=== PATIENT | female | born 1995 | race Hispanic/Latino ===

== ENCOUNTER → 2022-11-29 15:28 | Outpatient (CLI) | payer OTHER, SELFPAY ==
--- NOTE | 2022-11-29 15:30 | DI.US.S_ITS ---
PROCEDURE: US OB <= 14 WEEKS FETUS INDICATIONS: DATING OUTSIDE/PRIOR DATING DATA: Last menstrual period (LMP): 10/03/2022. LMP-based estimated date of delivery (JOSR): 07/10/2023. First dating scan (date and location): Today. Estimated date of delivery (JOSR) from first dating scan: 07/10/2023. TECHNIQUE: Real-time scanning was performed of the fetus and maternal pelvic organs, with image documentation. Endovaginal scanning was also performed to better visualize the fetus and maternal ovaries. COMPARISON: None. FINDINGS: Yolk sac is present. Heart rate is 165 beats per minute. [place]-rump length is 1.7 centimeters, with an ultrasound age of 8 weeks and 1 day, concordant with the reported LMP. Left ovary is within normal limits. Right ovary not well seen. Suspected small perigestational bleed measuring 1.5 x 0.7 x 0.8 centimeters. IMPRESSION: Living intrauterine gestation at 8 weeks and 1 day of ultrasound age, concordant with the reported LMP. Small perigestational hemorrhage. Dictated by: Carl Murphy M.D. on 11/29/2022 at 17:08 Approved by: Carl Murphy M.D. on 11/29/2022 at 17:09
== END ==
PROVIDERS: Referring Provider Obstetrics & Gynecology; Visit Provider Obstetrics & Gynecology
DX: Z3A.08 8 weeks gestation of pregnancy; O46.8X1 Other antepartum hemorrhage, first trimester
CPT/HCPCS: 76801; 76817

== ENCOUNTER → 2022-12-30 14:25 | Outpatient (CLI) | payer OTHER, SELFPAY ==
[2022-12-30 15:31] LABS: Add Manual Diff / Slide Review NO; Basophils Absolute Auto 0 /uL (0-100); Basophils Percent Auto 0.2 % (0-2); Eosinophils Absolute Auto 100 /uL (0-450); Eosinophils Percent Auto 0.4 % (2-4); Hematocrit 34.4 % (36-46); Hemoglobin 11.8 g/dL (12.0-16.0); Lymphocytes Absolute Auto 3000 /uL (1100-4500); Lymphocytes Percent Auto 20.7 % (25-40); Mean Corpuscular HGB Conc 34.4 % (30-36); Mean Corpuscular Hemoglobin 28.9 PG (26-34); Mean Corpuscular Volume 83.9 fL (80-100); Monocytes Absolute Auto 600 /uL (0-900); Neutrophils Absolute Auto 10700 /uL (1500-7000); Neutrophils Percent Auto 74.7 % (50-75); Platelet Count 265 X10^3/uL (150-400); Red Cell Distribution Width 13.6 % (11.6-14.8); White Blood Cell Count 14.3 X10^3/uL (4.5-11.0)
[2022-12-30 16:23] LABS: Hepatitis B Surface Antigen NEGATIVE s/c (NEGATIVE); Rubella Antibody IgG 86.1 IU/mL (>15)
[2022-12-30 16:49] LABS: HIV 1 & 2 Ab/Ag 4th Gen Combo NEGATIVE (NEGATIVE); Hep C Virus Ab w/Reflex Quant NEGATIVE s/c (NEGATIVE)
[2022-12-30 21:11] LABS: Urine Chlamydia NOT DETECTED; Urine N gonorrhoeae NOT DETECTED
[2022-12-31 08:51] LABS: Varicella IgG Antibody 685 index (Immune >165)
[2023-01-01 06:47] LABS: RPR Screen Non Reactive (Non Reactive)
== END ==
PROVIDERS: Referring Provider Obstetrics & Gynecology; Visit Provider Obstetrics & Gynecology
DX: Z34.01 Encounter for supervision of normal first pregnancy, first trimester (principal); Z11.3 Encounter for screening for infections with a predominantly sexual mode of transmission; Z3A.12 12 weeks gestation of pregnancy
CPT/HCPCS: 36415; 80055; 86787; 86803; 86850; 86900; 86901; 87086; 87389; 87491; 87591

== ENCOUNTER → 2023-01-31 14:04 | Outpatient (CLI) | payer OTHER, SELFPAY ==
[2023-02-02 20:36] LABS: Gest Age on Col Date 17.1 weeks (.); Insulin Dep Diabetes No (.); OSBR Risk 1IN 10000 (.); Results Report (.); Test Results *Screen Negative* (.)
== END ==
PROVIDERS: Referring Provider Obstetrics & Gynecology; Visit Provider Obstetrics & Gynecology
DX: Z34.02 Encounter for supervision of normal first pregnancy, second trimester (principal); Z3A.17 17 weeks gestation of pregnancy
CPT/HCPCS: 36415; 82105

== ENCOUNTER → 2023-02-20 12:32 | Outpatient (CLI) | payer OTHER, SELFPAY ==
--- NOTE | 2023-02-20 12:33 | DI.US.S_ITS ---
PROCEDURE: US OB >= 14 WEEKS FETUS INDICATIONS: ANATOMY OUTSIDE/PRIOR DATING DATA: Last menstrual period (LMP): 10/03/2022. LMP-based estimated date of delivery (JOSR): 07/10/2023. First dating scan (date and location): 11/29/2022. Estimated date of delivery (JOSR) from first dating scan: 07/10/2023. The calculations are made using the working JOSR of 07/10/2023. TECHNIQUE: Real-time scanning was performed of the fetus, with image documentation and biometric measurements. Endovaginal scanning: None COMPARISON: None. FINDINGS: General: A single living intrauterine gestation is present. Presentation: Breech. Placenta: Placental position is posterior , without previa. Amniotic fluid index: 12.5 cm, normal range is 5-24 cm. Single deepest vertical pocket is 6.5 cm. heart rate: 141 beats per minute. Maternal cervical canal: 3.7 cm long. Normal lower limit is 2.5 cm. biometrics: Biparietal diameter: 4.4 cm, 19 week 3 day Head circumference: 17.0 cm, 19 week 4 day Abdominal circumference: 14.2 cm, 19 week 4 day Femur length: 3.3 cm, 20 week 2 day Clinically estimated gestational age: 20 week 0 day Composite gestational age from present scan: 19 week 5 day Estimated weight and percentile: 317 g, 37th percentile Anatomic survey: Neuro: Ventricles are non-dilated at less than 10 mm. Cisterna magna is normal at 3-11 mm. Cerebellum is normal in size and morphology. Nuchal skin fold: Normal at less than 6 mm between 14-21 weeks gestational age. Face: Nose and lips, facial profile not visualized. Spine: No evidence for spina bifida. Heart: 4-chambered heart and outflow tracks not visualized. Diaphragm: Diaphragm is intact. Stomach: Left-sided stomach is present. Kidneys: No hydronephrosis. Normal is less than 5 mm in 2nd trimester, less than 7 mm in 3rd trimester. Cord: 3-vessel cord has orthotopic insertion. Bladder: Normal in size. Extremities: All 4 extremities identified. IMPRESSION: Single live intrauterine consistent with a 19 week 5 day gestation by current ultrasound. Four-chamber view, cardiac outflow cyst, facial profile not well visualized due to positioning. Approved by: German Noel M.D. on 02/20/2023 at 18:49
== END ==
PROVIDERS: Referring Provider Obstetrics & Gynecology; Visit Provider Obstetrics & Gynecology
DX: Z34.02 Encounter for supervision of normal first pregnancy, second trimester; Z3A.19 19 weeks gestation of pregnancy
CPT/HCPCS: 76811

== ENCOUNTER → 2023-04-07 14:25 | Outpatient (CLI) | payer OTHER, SELFPAY ==
[2023-04-07 16:07] LABS: Hematocrit 30.6 % (36-46); Hemoglobin 10.3 g/dL (12.0-16.0)
[2023-04-07 16:59] LABS: GTT (PREG) 1 Hour PP 50gm Dose 131 mg/dL (76-139)
== END ==
PROVIDERS: Referring Provider Obstetrics & Gynecology; Visit Provider Obstetrics & Gynecology
DX: Z34.02 Encounter for supervision of normal first pregnancy, second trimester (principal); Z3A.26 26 weeks gestation of pregnancy
CPT/HCPCS: 36415; 82950; 85014; 85018

== ENCOUNTER → 2023-04-24 14:52 | Outpatient (CLI) | payer OTHER, SELFPAY ==
--- NOTE | 2023-04-24 14:53 | DI.US.S_ITS ---
PROCEDURE: US OB LIMITED INDICATIONS: FOLLOW UP ANATOMY AND SIZE GREATER THAN DATES OUTSIDE/PRIOR DATING DATA: Last menstrual period (LMP): 10/03/2022. LMP-based estimated date of delivery (JOSR): 07/10/2023. First dating scan (date and location): 11/29/2022. Estimated date of delivery (JOSR) from first dating scan: 07/10/2023. The calculations are made using the ultrasound JOSR of 07/10/2023. TECHNIQUE: Real-time scanning was performed of the fetus, with image documentation and biometric measurements. COMPARISON: [facility], OB >= 14 WEEKS FETUS, 02/20/2023, 13:09. [facility], OB <= 14 WEEKS FETUS, 11/29/2022, 15:46. FINDINGS: General: A single living intrauterine gestation is present. Presentation: Vertex. Placenta: Placental position is posterior , without previa. Amniotic fluid index: 21.1 cm, normal range is 5-24 cm. Single deepest vertical pocket is 6.9 cm. heart rate: 126 beats per minute. Maternal cervical canal: 4.4 cm long. Normal lower limit is 2.5 cm. biometrics: Biparietal diameter: 7.6 cm equals 30 weeks 3 days Head circumference: 28.7 cm equals 31 weeks 4 days Abdominal circumference: 25.8 cm equals 30 weeks 0 days Femur length: 5.6 cm equals 29 weeks 3 days Clinically estimated gestational age: 29 weeks 0 days Composite gestational age from present scan: 30 weeks 0 days Estimated weight and percentile: 1487 g, 73rd percentile Other: The heart and facial profile now appear within normal limits. This study is limited by body habitus. IMPRESSION: Technically limited study demonstrating a normal heart and facial profile. Normal interval growth when compared to the prior ultrasound examination. We strive to produce accurate, complete, and clear reports of imaging services. To assist us in improving patient care, this report was composed using standard report templates and voice recognition software. Therefore, it may contain abnormal punctuation, insertions and/or omissions. Occasional wrong-word or sound-alike substitutions may occur. Though we review the report and make efforts to correct it, we do recommend that the report be read carefully in proper context to recognize any text inaccuracies. Dictated by: Juventino Washington M.D. on 04/24/2023 at 15:37 Approved by: Juventino Washington M.D. on 04/24/2023 at 15:40
== END ==
PROVIDERS: Referring Provider Obstetrics & Gynecology; Visit Provider Obstetrics & Gynecology
DX: O26.843 Uterine size-date discrepancy, third trimester (principal); Z3A.30 30 weeks gestation of pregnancy
CPT/HCPCS: 76815

== ENCOUNTER → 2023-06-14 10:42 | Outpatient (CLI) | payer OTHER, SELFPAY ==
[2023-06-15 14:51] LABS: Strep Grp B PCR POS for Grp B Strep
== END ==
PROVIDERS: Visit Provider Obstetrics & Gynecology
DX: Z3A.36 36 weeks gestation of pregnancy (principal); Z34.03 Encounter for supervision of normal first pregnancy, third trimester
CPT/HCPCS: 87653

== ENCOUNTER → 2023-06-15 10:16 | Outpatient (CLI) | payer OTHER, SELFPAY ==
--- NOTE | 2023-06-15 | DI.US.S_ITS ---
PROCEDURE: US OB LIMITED INDICATIONS: SIZE GREATER THAN DATES OUTSIDE/PRIOR DATING DATA: Last menstrual period (LMP): 10/03/2022. LMP-based estimated date of delivery (JOSR): 07/10/2023. First dating scan (date and location): 11/29/2022. Estimated date of delivery (JOSR) from first dating scan: 07/10/2023. The calculations are made using the working JOSR of 07/10/2023. TECHNIQUE: Real-time scanning was performed of the fetus, with image documentation and biometric measurements. Endovaginal scanning: None COMPARISON: [facility], OB LIMITED, 04/24/2023, 15:08. FINDINGS: General: A single living intrauterine gestation is present. Presentation: Vertex. Placenta: Placental position is posterior , without previa. Amniotic fluid index: 17.7 cm, normal range is 5-24 cm. Single deepest vertical pocket is 8.4 cm. heart rate: 140 beats per minute. Maternal cervical canal: 4.3 cm long. Normal lower limit is 2.5 cm. biometrics: Biparietal diameter: 8.8 cm, 35 week 3 day Head circumference: 32.1 cm, 36 week 2 day Abdominal circumference: 36.9 cm, 40 week 6 day Femur length: 6.9 cm, 35 week 1 day Clinically estimated gestational age: 36 week 3 day Composite gestational age from present scan: 37 week 0 day Estimated weight and percentile: 3496 g, 94 percentile Other: Umbilical artery SD ratio: 1.79, 2.27, 2.05 IMPRESSION: Single live intrauterine consistent with 37 week 0 day gestation by present ultrasound and 36 week 3 day gestation by dates Approved by: German Noel M.D. on 06/15/2023 at 13:34
== END ==
PROVIDERS: Referring Provider Obstetrics & Gynecology; Visit Provider Obstetrics & Gynecology
DX: O26.849 Uterine size-date discrepancy, unspecified trimester (principal); Z3A.36 36 weeks gestation of pregnancy
CPT/HCPCS: 76815

== ENCOUNTER → 2023-07-05 09:39 | Outpatient (CLI) | payer OTHER, SELFPAY | PROVIDERS: Visit Provider Obstetrics & Gynecology | DX: R82.998 Other abnormal findings in urine (principal) | CPT/HCPCS: 87086 ==

== ENCOUNTER 2023-07-12 08:32 | Outpatient (CLI) | payer OTHER, SELFPAY ==
--- NOTE | 2023-07-12 08:35 | DI.US.S_ITS ---
PROCEDURE: US OB LIMITED INDICATIONS: post dates, large baby OUTSIDE/PRIOR DATING DATA: Last menstrual period (LMP): 10/03/2022. LMP-based estimated date of delivery (JOSR): 07/10/2023. First dating scan (date and location): 11/29/2022. Estimated date of delivery (JOSR) from first dating scan: 07/10/2023. The calculations are made using the clinical JOSR of 07/10/2023. TECHNIQUE: Real-time scanning was performed of the fetus, with image documentation and biometric measurements. Endovaginal scanning: Not performed COMPARISON: [facility], OB LIMITED, 06/15/2023, 10:31. FINDINGS: General: A single living intrauterine gestation is present. Presentation: Vertex. Placenta: Placental position is posterior , without previa. Amniotic fluid index: 13.7 cm, normal range is 5-24 cm. Single deepest vertical pocket is 4.3 cm. heart rate: 149 beats per minute. biometrics: Biparietal diameter: 9.4 centimeters, 38 weeks 2 days Head circumference: 35.2 centimeters, 41 weeks 0 days Abdominal circumference: 37.2 centimeters, 41 weeks 1 day Femur length: 7.7 centimeters, 39 weeks 3 days Clinically estimated gestational age: 40 weeks 2 days Composite gestational age from present scan: 40 weeks 0 days Estimated weight and percentile: 4079 grams, 81st percentile Biophysical profile: Tone: 2 Movement: 2 Respiration: 2 Largest Pocket: 2 Umbilical artery S/D: 1.79-2.27 IMPRESSION: 1. Single live intrauterine at 40 weeks and 2 days. 2. Normal biophysical profile. Umbilical artery Dopplers range from 1.79-2.27. We strive to produce accurate, complete, and clear reports of imaging services. To assist us in improving patient care, this report was composed using standard report templates and voice recognition software. Therefore, it may contain abnormal punctuation, insertions and/or omissions. Occasional wrong-word or sound-alike substitutions may occur. Though we review the report and make efforts to correct it, we do recommend that the report be read carefully in proper context to recognize any text inaccuracies. Dictated by: Niels Bonilla M.D. on 07/12/2023 at 9:53 Approved by: Niels Bonilla M.D. on 07/12/2023 at 9:55
== END 2023-07-12 10:22 | disposition home or self-care (01) ==
LOC: LABOR 09:06 → OB 07-17 08:22
PROVIDERS: Referring Provider Obstetrics & Gynecology; Visit Provider Obstetrics & Gynecology
DX: O48.0 Post-term pregnancy (principal); O36.8130 Decreased fetal movements, third trimester, not applicable or unspecified; Z3A.40 40 weeks gestation of pregnancy; R82.998 Other abnormal findings in urine
CPT/HCPCS: 59025; 76815; 76819; 87086; G0378; G0379

== ENCOUNTER → 2023-07-12 08:40 | Outpatient (CLI) | payer OTHER, SELFPAY | PROVIDERS: Visit Provider Obstetrics & Gynecology | DX: R82.998 Other abnormal findings in urine (principal) | CPT/HCPCS: 87086 ==

== ENCOUNTER 2023-07-13 05:34 | Inpatient (IN) | payer OTHER, SELFPAY ==
--- NOTE | 2023-07-12 21:33 | P.HPOB_ITS ---
OB HPI Date/Time Date of admission: 07/13/23 Date Patient Seen: 07/13/23 Time Patient Seen: 07:15 History of Present Condition Chief complaint: IUP, 40+ 3 wks, macrosomia, unengaged vertex : 1 Para: 0 Estimated Date of Delivery: 07/10/23 Estimated Gestational Age (weeks): 40+3 Narrative: Kia Polo is a 27 year old primigravida admitted now for primary section due to macrosomia with an estimated weight of greater than 9 lb and an unengaged vertex at term. Patient is 4 ft 11 in height and clinical exam/pelvimetry consistent with relative inlet obstruction due to cephalopelvic disproportion. After discussing all options including ripening/induction versus primary section, patient and her have decided to move forward with primary due to potential risks of shoulder dystocia and prolonged unsuccessful induction given that the vertex is unengaged. The patient's course has been uneventful with solid early dating and appropriate milestones throughout. GBS carrier status is positive. Indications Operative indications ( section): elective (macrosomia, unengaged vertex at term) History of Present care: good care Dating criteria: LMP confirmed by 1st trimester US Ultrasounds: normal 1st trimester US, normal mid trimester US and abnormal US findings (Macrosomia; EFW 4075 gms.) Obstetrical complications: other (Macrosomia) Medical complications: none Preadmission Labs Blood type: A (+) positive -: Antibody screen: negative, GBS status: positive, HBsAG: negative, HIV: negative and RPR/VDLR: negative -: Chlamydia screen: not detected and Gonorrhea screen: not detected -: Rubella: immune and Varicella: immune HCT: 30.6 HCAB: negative PAP: Normal Quad screen: Normal (NL AFP testing) Cell-free DNA: Low risk female 1 hr GTT: 131 Prior (ies) History: Primigravida Evaluation Evaluation Baseline heart rate: 140 Variability: Moderate (11-25) monitor accelerations: Present Monitor Decelerations: Absent Category of Tracing: Reactive Status: Category l Dilation: Closed Effacement: 40-50% station: -4 Position of cervix: mid Consistency: soft Cristobal score: 4 [facility] Medical History (Updated 07/12/23 @ 08:35 by Ray Jamil MD) Hip pain SI (sacroiliac) joint dysfunction TBI (traumatic brain injury) Surgical History (Updated 01/30/23 @ 18:17 by Terrie Rosales) [place] teeth extracted (~2013) S/P ASA/PRK (advanced surface ablation photorefractive keratectomy) (~2015) Family History (Updated 01/30/23 @ 18:18 by Terrie Rosales) Father Hypertension Hyperlipidemia Mental health problem Grandfather Glaucoma Lung cancer Grandfather Hypertension Colon cancer Hyperlipidemia Grandmother Hypertension Cataracts, bilateral Brother Asthma Social History marital status: number of children: 0 household members: spouse lives independently: Yes caregiver/support person: No housing: apartment pets and animals: Yes (1 cat, 1 dog; aware of toxo precautions) education level: college (rolando's degree) 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; 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[employer]) current occupational exposures/hazards: Yes (aware of precautions w/ cleaning chemicals) travel history: over 6 months ago seatbelt use: always helmet use: Yes water heater temp set < 120 deg: Yes working smoke detector in home: Yes fire extinguisher in home: Yes carbon monox detector in home: Yes firearms in home: Yes firearms unloaded and locked: Yes do you feel safe at home: Yes Smoking Status: Never smoker second hand exposure: No alcohol intake: former (2-3/week when not ) substance use type: does not use during the past year weight has: other (lost ~40lb in boot camp, back to baseline weight now.) well-balanced diet: daily or most days daily servings fruits/ve-4 caffeine: Yes (aware of 200mg limit) Type(s) of exercise: walking, weight lifting and other (rowing, hiking) frequency: 5-6 times per week Meds Home Medications and Allergies Home Medications Medication Instructions Recorded Confirmed Type prenat.vits,aspen,itp-etbv-skibv 1 tab PO DAILY 11/18/22 07/12/23 History breast pump #1 ea 02/28/23 07/12/23 Rx omeprazole 40 mg capsule,delayed 40 mg PO DAILY #30 caps 04/06/23 07/12/23 Rx release Allergies Allergy/AdvReac Type Severity Reaction Status Date / Time lactose AdvReac Mild Abdominal Verified 07/12/23 14:07 Pain Review of Systems Review of Systems Narrative: Problem-specific ROS positives included in HPI OB Exam Vital signs Blood Pressure: 132/90 Pulse Rate: 85 Temperature: 98.4 F HENMT Head: normal to inspection, normocephalic and atraumatic Eyes General: appearance normal, both eyes and all related structures Resp Effort & Inspection: normal respiratory effort and able to speak in complete sentences Auscultation: clear to auscultation bilaterally Cardio Rate: regular rate Rhythm: regular rhythm Heart Sounds: S1 normal, S2 normal and no murmurs Extremities Lower extremity: Yes normal to inspection GI Inspection: normal to inspection Palpation: Yes soft and Yes no hepatosplenomegaly Uterus Location (Fundal Height): 40 Estimated Weight (lbs): 9 Objective Labs 07/13/23 06:00 Assessment and Plan Assessment and Plan Assessment and Plan narrative: ASSESSMENT 1. Intrauterine , 40+3 wks EGA 2. macrosomia 3. Unengaged vertex at term 4. GBS positive status PLAN 1. Admit for primary section 2. Patient counseled regarding alternatives, risks, benefits, and potential complications associated with delivery. With full understanding of the above, a written consent was executed, signed, and witnessed this date. 3. See admission orders
[2023-07-13 05:51] VITALS: BP 132/90
[2023-07-13] MEDS: LACTATED RINGERS 1,000 ML 999 ML IV (06:08)
[2023-07-13 06:19] LABS: Add Manual Diff / Slide Review NO; Basophils Absolute Auto 100 /uL (0-100); Basophils Percent Auto 0.6 % (0-2); Eosinophils Absolute Auto 100 /uL (0-450); Eosinophils Percent Auto 0.6 % (2-4); Hematocrit 34.7 % (36-46); Hemoglobin 11.5 g/dL (12.0-16.0); Lymphocytes Absolute Auto 3100 /uL (1100-4500); Lymphocytes Percent Auto 25.2 % (25-40); Mean Corpuscular HGB Conc 33.1 % (30-36); Mean Corpuscular Hemoglobin 27.4 PG (26-34); Monocytes Absolute Auto 700 /uL (0-900); Monocytes Percent Auto 5.4 % (3-14); Neutrophils Absolute Auto 8300 /uL (1500-7000); Neutrophils Percent Auto 68.2 % (50-75); Platelet Count 193 X10^3/uL (150-400); Red Blood Cell Count 4.18 X10^6/uL (4.0-5.2); Red Cell Distribution Width 16.7 % (11.6-14.8); White Blood Cell Count 12.3 X10^3/uL (4.5-11.0)
[2023-07-13 07:23] VITALS: BP 132/90; PULSE 85; TEMP 36.9
--- NOTE | 2023-07-13 07:23 | PM.PREOP ---
Pre-operative Note COVID-19 COVID-19 status: Not tested Interval Note History & Physical reviewed/Exam performed by Physician: Yes Changes to H&P: No
[2023-07-13] MEDS: CITRIC ACID/SODIUM CITRATE 15 ML SOLUTION 30 ML PO (07:24)
[2023-07-13] MEDS: CEFAZOLIN 2 GM/100 ML PREMIX 100 ML IV (08:00)
[2023-07-13] MEDS: LACTATED RINGERS 1,000 ML 42 ML IV (08:10)
--- NOTE | 2023-07-13 08:26 | SUR.OPER ---
Supine on Padded OR bed, head on pillow, taped at thigh to secure to bed due to short stature, arms secured on padded arm boards at <90 degrees abduction. Bump under right buttock. Legs uncrossed, gel pad to heels, tape over blanket to lower legs, gel pad placed between urinary catheter tubing and posterior thigh.
[2023-07-13] MEDS: ACETAMINOPHEN IV 1,000 MG/100 ML VIAL 400 MG IV (08:33)
--- NOTE | 2023-07-13 08:36 | SUR.OPER ---
Viable baby girl delivered at 0831. Placenta and cord blood tubes X2 given to L&D RN.
[2023-07-13 09:30] VITALS: BP 123/83; PULSE 72; RESP 14; TEMP 36.4; O2SAT 98
[2023-07-13 09:35] VITALS: BP 107/76; PULSE 66; RESP 16; O2SAT 100
[2023-07-13 09:40] VITALS: BP 117/76; PULSE 67; RESP 12; TEMP 36.9; O2SAT 100
--- NOTE | 2023-07-13 09:50 | PM.OBCS.1 ---
Operative Date/Time/Diagnoses Date of procedure: 07/13/23 Time of procedure: 08:20 Pre-op diagnosis: Intrauterine gestation, [place]ren, 40+3 weeks EGA macrosomia Unengaged vertex at term Post-op diagnosis: same Procedure & Clinicians Procedure: Primary section (low transverse cervical) Same procedure as scheduled: Yes Indications: Kia Polo is a 27 year old primigravida admitted now for primary section due to macrosomia with an estimated weight of greater than 9 lb and an unengaged vertex at term. Patient is 4 ft 11 in height and clinical exam/pelvimetry consistent with relative inlet obstruction due to cephalopelvic disproportion. After discussing all options including ripening/induction versus primary section, patient and her have decided to move forward with primary due to potential risks of shoulder dystocia and prolonged unsuccessful induction given that the vertex is unengaged. The patient's course has been uneventful with solid early dating and appropriate milestones throughout. GBS carrier status is positive. Surgeon: Ray Jamil Greige Goods Marker: Hazel Galicia Reason for Greige Goods Marker: Greige Goods Marker required for the safe, effective, and timely completion of this surgery. Anesthesia Type: Spinal Operative Notes Findings: Viable female infant BW [], Apgars []/[], delivered from the [] presentation. Normal gravid anatomy. Closure Type: primary Specimen(s): cord blood Intraoperative meds administered: Ketorolac and Pitocin Applied: Catheter Estimated Blood Loss (mL): 600 Blood products transfused: none Procedure in detail: With her informed written consent, the patient was taken to the operating room and placed in the supine position for a primary section procedure, for the indication(s) above. The abdomen was prepped and draped in the usual manner for section and a pre-surgical timeout was taken per [facility] OR protocol. Once effective anesthesia was confirmed, a 15 cm transverse Pfannenstiel incision was made in the skin and taken down through the subcutaneous tissues to the deep fascia. The deep fascia was incised transversely, the rectus abdominal eyes bluntly and sharply, and the peritoneal cavity entered without difficulty. The lower uterine segment was visualized and the position/presentation palpated. A transverse incision at or above the vesicouterine reflection was made with Metzenbaum scissors and transverse hysterotomy performed near the midline. Amniotomy revealed clear fluid. The incision was extended bilaterally with digital traction and the infant was delivered easily from the vertex presentation. The was vigorous and cord clamping delayed for 60 seconds. The placenta was delivered intact using gentle cord traction and fundal massage.The uterine cavity was then cleared of any clot/debris first with a sloppy wet lap tape followed by a dry lap tape. Ring forceps were then applied to the angles and the midline of the incised JANNY. A primary closure of the uterus was then accomplished with #1 CCGS in a running interlocking stitch followed by a 2nd layer of #1 CCGS in a running interlocking imbricating stitch. No additional sutures was/were required to achieve complete hemostasis. Once pelvic hemostasis was assured, the anterior peritoneum were closed with a running 2-0 Vicryl suture and the fascia closed with #1 Vicryl in a running stitch initiated at both angles and tying separately near the midline. The subcutaneous tissues were reapproximated with 2-0 Vicrylsuture using inverted interrupted stitches. The skin edges were then brought together with 4-0 Monocryl in a subcuticular closure and the incision was reinforced with 1 Steri-Strips. An appropriate compression dressing was applied and the patient transferred to PACU for recovery and subsequent transfer to the Center for recuperation. Complications: none Post-operative Condition: stable Disposition: PACU Aftercare: routine postop
[2023-07-13] MEDS: KETOROLAC 30 MG/ML VIAL IV ×2 (15:55→22:02)
[2023-07-13] MEDS: diphenhydrAMINE 50 MG/ML VIAL IV (17:38)
[2023-07-13] MEDS: ACETAMINOPHEN 325 MG TABLET 650 MG PO (18:42)
[2023-07-14] MEDS: ACETAMINOPHEN 325 MG TABLET 650 MG PO ×3 (00:35→12:21)
[2023-07-14] MEDS: KETOROLAC 30 MG/ML VIAL IV (04:00)
[2023-07-14 07:36] LABS: Add Manual Diff / Slide Review NO; Basophils Absolute Auto 100 /uL (0-100); Basophils Percent Auto 0.5 % (0-2); Eosinophils Absolute Auto 0 /uL (0-450); Hematocrit 24.9 % (36-46); Hemoglobin 8.4 g/dL (12.0-16.0); Lymphocytes Absolute Auto 2600 /uL (1100-4500); Lymphocytes Percent Auto 19.9 % (25-40); Mean Corpuscular HGB Conc 33.5 % (30-36); Mean Corpuscular Hemoglobin 27.8 PG (26-34); Monocytes Absolute Auto 700 /uL (0-900); Monocytes Percent Auto 5.4 % (3-14); Neutrophils Absolute Auto 9600 /uL (1500-7000); Neutrophils Percent Auto 74.2 % (50-75); Platelet Count 138 X10^3/uL (150-400); Red Cell Distribution Width 16.1 % (11.6-14.8); White Blood Cell Count 12.9 X10^3/uL (4.5-11.0)
[2023-07-14] MEDS: IBUPROFEN 600 MG TABLET PO ×2 (09:54→15:45)
[2023-07-14] MEDS: DOCUSATE 100 MG CAPSULE PO (09:55)
--- NOTE | 2023-07-14 13:56 | P.DS_ITS ---
Discharge Providers Provider Date of admission: 07/13/23 05:34 Discharge Date: 07/14/23 Primary care physician: Josh FONG Provider Consults: 07/13/23 10:44 Consult to Veterinary Milk Specialist Routine Comment: Discharge provider: Ray Jamil MD Summary Hospital Course Date Patient Seen: 07/14/23 Time Patient Seen: 13:56 Diagnoses: Intrauterine gestation, 40+ 3 weeks gestational age., delivered by primary section macrosomia Unengaged vertex at term GBS positive status Hospital Course: On the morning of 07/13/2023, the patient was admitted for primary section due to macrosomia and unengaged vertex at term. She underwent a primary section on 07/13/2023 with the details of that procedure well summarized on my operative note of that date. The was in fact unengaged and weight 4587 g (10 lb 1.8 oz). Following delivery both mother and baby have done extremely well with the mother experiencing prompt return of bowel and bladder function, she is ambulating independently, tolerating regular diet, and her pain is well controlled with oral pain medications. She will be discharged at this time to home in an afebrile normotensive condition after counseling regarding precautionary symptoms, limitations of activity, medications, plans for follow- up which will be in 1 week. Medications at discharge will include resumption of all pre delivery medications as well as ibuprofen 600 mg p.o. q.6 hours as needed pain, dispense 30 with 2 refills. Peripartum Data Infant Delivery Method: Section Laceration Description: None Episiotomy description: None Procedures: Spinal block anesthetic Primary section (low transverse cervical) complications: none 1: Gender: Female Disposition of : home Status at Discharge Cognitive/behavioral status at discharge: oriented Functional status at discharge: independent ambulation Overall status at discharge: patient is progressing back to baseline Time Spent with Patient Time attestation: Total time spent providing and/or coordinating discharge services: Time spent: Less than 30 minutes Objective Labs 07/14/23 07:25 Labs: Laboratory Results - last 24 hr 07/14/23 07:25 WBC 12.9 H RBC 3.00 L Hgb 8.4 L Hct 24.9 L MCV 83.0 MCH 27.8 MCHC 33.5 RDW 16.1 H Plt Count 138 L Neut % (Auto) 74.2 Lymph % (Auto) 19.9 L [place] % (Auto) 5.4 Eos % (Auto) 0.0 L Baso % (Auto) 0.5 Neut # (Auto) 9600 H Lymph # (Auto) 2600 [place] # (Auto) 700 Eos # (Auto) 0 Baso # (Auto) 100 Exam Vital Signs (past 8 hours): Oxygen Delivery Method Room Air Const General: cooperative and comfortable Nutritional Appearance: average body habitus Orientation: alert and oriented x3 HENMT Head: normal to inspection, atraumatic and abrasion Ears: hearing grossly normal bilaterally Face and sinus: face symmetric Eyes General: appearance normal, both eyes and all related structures Conjunctivae: conjunctivae normal Sclera: sclerae normal EOM: EOM intact bilaterally Neck Neck: normal visual inspection Resp Effort & Inspection: normal respiratory effort and able to speak in complete sentences Auscultation: clear to auscultation bilaterally Cardio Rate: regular rate Rhythm: regular rhythm Heart Sounds: S1 normal, S2 normal and no murmurs GI Inspection: normal to inspection and incision (Compression dressing removed, Aquacel applied) Palpation: soft, no hepatosplenomegaly and tender (Mild, diffuse postsurgical tenderness) Auscultation: normal bowel sounds External Female Exam: other (No significant bleeding noted) Extrem General: no calf tenderness Psych Appearance: grossly normal Mental Status: mental status grossly normal Speech and Movement: speech and movement normal Mood: congruent mood Affect: normal affect Attitude: cooperative Thought Process: normal Thought Content: normal Judgment: judgment good Discharge Plan Discharge Plan Patient Disposition: Home Provider Discharge Comment: Please review the written instructions you received when you were discharged from the hospital. Your follow-up appointment will be 1 week after your and we look forward to seeing you then. If however in the meanwhile you have any issues, concerns, questions, please contact the office either through the office phone number [phone], or via the patient portal. Discharge orders & Medications Prescriptions: New ibuprofen 600 mg Tablet 600 mg PO Q6H Qty: 30 2RF Continued (DME) breast pump Device See Rx Instructions .Route Qty: 1 0RF Rx Instructions: double electric breast pump prenat.vits,aspen,rtv-pzjw-yvkhq Tablet 1 tab PO DAILY omeprazole 40 mg capsule,delayed release(DR/EC) 40 mg PO DAILY Qty: 30 6RF Follow up/Referrals: Hazel Galicia DO [Physician] - 1 Week (Please follow up with Dr. Rodriguez on July 21@ 1030am for your dressing removal. Please call the clinic with any questions or concerns. ) Ray Jamil MD [Physician] - Discharge Health Status Multidrug resistant organism: No MDRO Diet/Activity/Treatments Diet: Diet as Tolerated Activity: As tolerated Other treatments: Rujj-eqx-yxfkyax Tylenol and/or ibuprofen may be used for additional pain relief. Gdkm-eyd-mqgtwvc stool softeners and/or MiraLax may be used as needed for constipation. Skin/Wound/Dressing Care Report to your healthcare provider any signs of infection, such as:: chills, fever, increased pain, unusual drainage and unusual redness Dressing: Dressing will be removed at the time of your one-week postop visit. Visit Report/Discharge Packet Instructions: DI for , DI for and Nipple Soreness, DI for Prescription Opioid Use Stand Alone Forms: Discharge: Care Discharge Data Primary Care Provider: Josh Gay
[2023-07-14 14:02] VITALS: BP 111/74; PULSE 85; RESP 18; TEMP 36.9
== END 2023-07-14 16:10 | disposition home or self-care (01) | DRG 788 ==
PROVIDERS: Admitting Provider Obstetrics & Gynecology; Referring Provider Obstetrics & Gynecology; Visit Provider Obstetrics & Gynecology
PROC: 10D00Z1 Extraction of Products of Conception, Low, Open Approach (ICD-10-PCS; CPT 59514; principal; 2023-07-13 07:45)
DX: O36.63X0 Maternal care for excessive fetal growth, third trimester, not applicable or unspecified (principal); O66.2 Obstructed labor due to unusually large fetus; Z3A.40 40 weeks gestation of pregnancy; Z37.0 Single live birth; O99.824 Streptococcus B carrier state complicating childbirth
CPT/HCPCS: 36415; 59050; 59510; 59514; 85025; 86850; 86900; 86901; J0131; J0171; J0690; J1100; J1200; J1885; J2274; J2405; J3010

== ENCOUNTER 2024-10-01 13:45 | Outpatient (RCR) | payer OTHER, SELFPAY ==
--- NOTE | 2024-06-03 17:22 | PT.OIE ---
Current Diagnoses Stress incontinence (female) (male) (06/03/24) Past Medical History (Last Updated 01/30/23 @ 18:17 by Terrie Rosales) Hip pain SI (sacroiliac) joint dysfunction TBI (traumatic brain injury) Past Surgical History (Last Updated 08/18/23 @ 15:06 by Ray Jamil MD) History of delivery S/P ASA/PRK (advanced surface ablation photorefractive keratectomy) (~2015) [place] teeth extracted (~2013) Visit Care Team Role Provider Type Evita Zamora PA-C Attending Provider Non-Staff Primary Care Provider Referring Provider Specialty: Medical Address: [address] [place] [address], [id number] Email: Physical Therapy Initial Evaluation PT-OP-A Visit Information Start: 05/16/24 19:17 Freq: Status: Active Protocol: Document 06/03/24 08:17 LRN (Rec: 06/03/24 09:05 LRN [id number]) Out-Patient Physical Therapy Visit Information Visit Information Visit Type Initial Evaluation Visit Start Time 08:16 Visit Stop Time 09:04 Visit Number 1 Evaluation Information Evaluation Date 06/03/24 Precautions Precautions 2022 PT-OP-B Current Condition Start: 05/16/24 19:17 Freq: Status: Active Protocol: Document 06/03/24 08:17 LRN (Rec: 06/03/24 09:05 LRN [id number]) Current Condition History of Current Condition Onset Date 07/2023 Current Complaints Urinary leakage w/laugh, sneeze, cough, holding too long, squat sometimes History of Current Condition Pt reports onset of stress incontinence after of daughter. Born 07/13/2023 (10 months old ago). From November to April was coughing a lot due to illness of her and daughter. 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 Pt is . Pt is Prior Treatments and Tests PT in [place] in 12/2021 for bilateral hip pain. Developmental History Developmental History Daughter delivered via C- section, 10# 4oz. Pt is 4'11 , wgt 185#. Treatment Goals Patient/Caregiver Goals Pt goals: -Improve PF strength to not leak with exercise rowing and/ or laughing (sneeze, cough, laughing). -HEP. 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 PT-OP-C Subjective Start: 05/16/24 19:17 Freq: Status: Active Protocol: Document 06/03/24 08:17 LRN (Rec: 06/03/24 09:05 LRN [id number]) Patient Questionnaires Pelvic Pain and Urgency/Frequency Patient Symptom Scale Pelvic Pain Score 6 OP-PT Pain Assessment Pain Assessment Grid Paper Pain Assessment Grid Completed Yes Location Intrascapular Pain Location Details Between scapula Intensity 2 Scale Used Numeric (0 - 10) Gui Hips Pain Location Details Lateral hips Intensity 3 Scale Used Numeric (0 - 10) PT-OP-I Pelvic Floor Start: 05/16/24 19:17 Freq: Status: Active Protocol: Document 06/03/24 08:17 LRN (Rec: 06/03/24 09:05 LRN [id number]) Pelvic Floor Assessment Urine Leakage Size Small Leakage Cause Cough,Exercise,Lifting,Sneeze, Urge Leaks Per Day 2 Voiding Frequency 5 Nocturia 1-2 Pads Used In 24 Hours 5 Urine Pad Type Panty Liner Bowel Bowel Movement Frequency 3 Pelvic Clock Pelvic Clock 6-9 Tenderness Pelvic Clock 9-12 Tenderness Pelvic Clock Other Red labia minora on the lower left and right lower to mid labia, possible skin lesion. She has skin deviations at vaginal entry, questionable tunnel? Prolapse Cystocele Grade 2 Urethrocele Grade 2 Perineal Descent Resting Present Bearing Present Contraction Ability Voluntary Contraction Moderate Voluntary Relaxation Weak Manual Muscle Testing Left 2 Manual Muscle Testing Right 2 Manual Muscle Testing Anterior 2 Manual Muscle Testing Posterior 3 Muscle Endurance (Seconds) 6 Number of Quick Contractions In 10 7 Seconds PT-OP-J Posture/Palpation/Skin Start: 05/16/24 19:17 Freq: Status: Active Protocol: Document 06/03/24 08:17 LRN (Rec: 06/03/24 09:05 LRN [id number]) Posture Evaluation Position Standing Head/C-Spine Posture Forward Head Shoulder Posture (R) Elevated Scapula Posture (R) Elevated Pelvis Posture Anteriorly Tilted Knee Posture (L) Genu Valgus,(R) Genu Valgus Comments Posture Comments Dowagers hump, straightened upper T/S spine. Palpation Assessment Location Abdomen Palpation Location Diastasis Rectus Palpation Details Umbilicus 5 above: Closed Umbilicus 4 above: 1 finger width (~2.5 cm) Umbilicus 3 above: 2 finger widths Umbilicus 2 above: 1.5 finger widths Umbilicus 1 above: 1.5 finger widths Umbilicus Umbilicus: 1 below: closed PT-OP-K Range of Motion Start: 05/16/24 19:17 Freq: Status: Active Protocol: Document 06/03/24 08:17 LRN (Rec: 06/03/24 09:05 LRN [id number]) Lumbar Spine Range of Motion Lumbar Spine Active Degrees Testing Position Standing Flexion 110 Extension 15 Rotation Left 45 Rotation Right 40 Lateral Flexion Left 25 Lateral Flexion Right 13 Hip Goniometric Range of Motion Hip Right Passive Testing Position Supine Internal Rotation 35 External Rotation 65 Left Passive Testing Position Supine Internal Rotation 35 External Rotation 85 PT-OP-M Strength Start: 05/16/24 19:17 Freq: Status: Active Protocol: Document 06/03/24 08:17 LRN (Rec: 06/03/24 09:05 LRN [id number]) Trunk Strength Trunk Manual Muscle Testing Core Stabilization Loss of core stability with resistance to R hip ext, and mild loss of stability with other resisted hip motions. Hip Strength Hip Manual Muscle Testing Right Adduction 4+ Good+ Comments Strength is 5/5 except as indicated above. Left External Rotation 3+ Fair+ Comments Strength is 5/5 except as indicated above. PT-OP-Q Treatments Start: 05/16/24 19:17 Freq: Status: Active Protocol: Document 06/03/24 08:17 LRN (Rec: 06/03/24 09:05 LRN [id number]) Self-Care/Home Management Treatment Education Other Education Discussed results of evaluation, goals, treatment, and plan of care (POC) with pt , attendance/cx/dns policy; pt agreeable to evaluation, goals, treatment, attendance/ cx/dns policy and POC. Pt educated in use of Bladder Diary and I/S in tracking for 1 week. Activities Self-Care/Home Management Activities Issued & reviewed HEP: Beena ex's and educated in exercise of Quick Flicks, Long Holds and Aggravators. PT-OP-T Assessment and Plan Start: 05/16/24 19:17 Freq: Status: Active Protocol: Document 06/03/24 08:17 LRN (Rec: 06/03/24 09:05 LRN [id number]) Physical Therapy Assessment Rehab Potential Rehabilitation Potential Excellent Evaluation Complexity Number of Personal Factors/Comorbidities 0 Impairments Impairments Activity Tolerance Goals Three Impairment Poor core pressure management with cytocele & urethrocele ( grade 2). Short Term Goal (STG) Pt will be educated in core pressure management with transfers, ADLs and exercise. STG Duration 07/05/24 Snuff Drier Goal (LTG) Pt will be able to lift and exercise (row, squat) without urinary leakage 90% of the time, coordinating breath/ Kegel with exercise. LTG Duration 08/30/24 Two Impairment PF weakness (2/5, except posterior is 3/5) Short Term Goal (STG) Pt will be educated in PF contractions w/o substitute muscles (primarily abdominal). STG Duration 07/05/24 Snuff Drier Goal (LTG) Improve PF strength to not leak with sneeze, cough, laughing. LTG Duration 08/30/24 One Impairment Pt lacks appropriate self care HEP. Short Term Goal (STG) Education in vulvar/genital care. STG Duration 07/05/24 Chcf Goal (LTG) Pt will be independent with a self care HEP of PF strengthening w/breath, positional ex's and hip ROM exercises. LTG Duration 08/30/24 Assessment Summary Assessment Pt is a 28 yo female who presents with stress urinary incontinence with coughing, sneezing, lifting, exercise and with a strong urge, probably due to weakness and pain inhibition. She is very tender around her PF clock and redness on labia minora. R hip mobility is decreased R compared to L and hip IR is bilaterally limited, and trunk R lateral flex is decreased. Trunk rot strengthening. The pt will benefit from skilled physical therapy to decrease her urinary incontinence, improve bowel function, decrease pelvic pain improve core and pubic symphasis stability and reduce her diastasis rectus and educate the pt in a self prison program. The pt is expected to need 8 visits, but may take 12 wks to complete due to the holiday season. Physical Therapy Plan Frequency and Duration Frequency of Treatment 1x/Week Duration of treatment (weeks) 12 Plan of Care Start Date 06/03/24 Therapeutic Interventions Therapeutic Interventions Home Exercise Program,Joint Mobilizations,Manual Therapy, Neuromuscular Re-education, Self-Care/Home Management,Soft Tissue Mobilization,Taping, Therapeutic Activities, Therapeutic Exercises Modalities Biofeedback Next Visit Focus/Plan Next Note Type Treatment Note Next Visit Plan Review Bladder dairy and discuss fluid intake (AM/PM), bowel movement frequency, & nighttime voiding frequency. Education: PF contractions in isolation of substitute muscles, coordination of proper breaths with ADLs, transfers, body mechanics and exercise. Hip stretch (IR R>L, ER L>R). PF strengthening (anterior & posterior) in isolation of substitute muscles PLAN: Education: PF contractions in isolation of substitute muscles, coordination of proper breaths with ADLs, transfers, body mechanics and exercise. Hip stretch (R ER, L IR/AB) & core strengthening (rotation, TA). Pt education proper vulvar and perineal care with handout issued.
--- NOTE | 2024-06-03 17:23 | PT.OPPOC ---
Physical, Occupational & Speech Therapy At [facility] Current Diagnoses Stress incontinence (female) (male) (06/03/24) Visit Care Team Role Provider Type Evita Zamora PA-C Attending Provider Non-Staff Primary Care Provider Referring Provider Specialty: Medical Address: [address] [place] [address], [id number] Email: Plan Of Care PT-OP-B Current Condition Start: 05/16/24 19:17 Freq: Status: Active Protocol: Document 06/03/24 08:17 LRN (Rec: 06/03/24 09:05 LRN [id number]) Current Condition History of Current Condition Onset Date 07/2023 Current Complaints Urinary leakage w/laugh, sneeze, cough, holding too long, squat sometimes History of Current Condition Pt reports onset of stress incontinence after of daughter. Born 07/13/2023 (10 months old ago). From November to April was coughing a lot due to illness of her and daughter. 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 Pt is . Pt is Prior Treatments and Tests PT in [place] in 12/2021 for bilateral hip pain. Developmental History Developmental History Daughter delivered via C- section, 10# 4oz. Pt is 4'11 , wgt 185#. Treatment Goals Patient/Caregiver Goals Pt goals: -Improve PF strength to not leak with exercise rowing and/ or laughing (sneeze, cough, laughing). -HEP. 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 PT-OP-T Assessment and Plan Start: 05/16/24 19:17 Freq: Status: Active Protocol: Document 06/03/24 08:17 LRN (Rec: 06/03/24 09:05 LRN [id number]) Physical Therapy Assessment Rehab Potential Rehabilitation Potential Excellent Evaluation Complexity Number of Personal Factors/Comorbidities 0 Impairments Impairments Activity Tolerance Goals Three Impairment Poor core pressure management with cytocele & urethrocele ( grade 2). Short Term Goal (STG) Pt will be educated in core pressure management with transfers, ADLs and exercise. STG Duration 07/05/24 Director Public Service Goal (LTG) Pt will be able to lift and exercise (row, squat) without urinary leakage 90% of the time, coordinating breath/ Kegel with exercise. LTG Duration 08/30/24 Two Impairment PF weakness (2/5, except posterior is 3/5) Short Term Goal (STG) Pt will be educated in PF contractions w/o substitute muscles (primarily abdominal). STG Duration 07/05/24 Director Public Service Goal (LTG) Improve PF strength to not leak with sneeze, cough, laughing. LTG Duration 08/30/24 One Impairment Pt lacks appropriate self care HEP. Short Term Goal (STG) Education in vulvar/genital care. STG Duration 07/05/24 Director Public Service Goal (LTG) Pt will be independent with a self care HEP of PF strengthening w/breath, positional ex's and hip ROM exercises. LTG Duration 08/30/24 Assessment Summary Assessment Pt is a 28 yo female who presents with stress urinary incontinence with coughing, sneezing, lifting, exercise and with a strong urge, probably due to weakness and pain inhibition. She is very tender around her PF clock and redness on labia minora. R hip mobility is decreased R compared to L and hip IR is bilaterally limited, and trunk R lateral flex is decreased. Trunk rot strengthening. The pt will benefit from skilled physical therapy to decrease her urinary incontinence, improve bowel function, decrease pelvic pain improve core and pubic symphasis stability and reduce her diastasis rectus and educate the pt in a self skilled nursing program. The pt is expected to need 8 visits, but may take 12 wks to complete due to the holiday season. Physical Therapy Plan Frequency and Duration Frequency of Treatment 1x/Week Duration of treatment (weeks) 12 Plan of Care Start Date 06/03/24 Therapeutic Interventions Therapeutic Interventions Home Exercise Program,Joint Mobilizations,Manual Therapy, Neuromuscular Re-education, Self-Care/Home Management,Soft Tissue Mobilization,Taping, Therapeutic Activities, Therapeutic Exercises Modalities Biofeedback Next Visit Focus/Plan Next Note Type Treatment Note Next Visit Plan Review Bladder dairy and discuss fluid intake (AM/PM), bowel movement frequency, & nighttime voiding frequency. Education: PF contractions in isolation of substitute muscles, coordination of proper breaths with ADLs, transfers, body mechanics and exercise. Hip stretch (IR R>L, ER L>R). PF strengthening (anterior & posterior) in isolation of substitute muscles PLAN: Education: PF contractions in isolation of substitute muscles, coordination of proper breaths with ADLs, transfers, body mechanics and exercise. Hip stretch (R ER, L IR/AB) & core strengthening (rotation, TA). Pt education proper vulvar and perineal care with handout issued. Plan of Care Dates Plan of Care Start Date 06/03/24 Electronically Signed by: Chelsea De La O, PT 06/06/24 [id number] If you are in agreement with this Plan of Care, please return a signed and dated copy. I have reviewed this Plan of Care and certify that the skilled therapy services above are required to meet the patient?s needs. Physician Signature Date Printed Name and Credentials Clinical Instructor Signature Printed Name and Credentials
--- NOTE | 2024-06-18 13:36 | PT.OTN ---
Current Diagnoses Stress incontinence (female) (male) (06/18/24) Physical Therapy Treatment Note PT-OP-A Visit Information Start: 05/16/24 19:17 Freq: Status: Active Protocol: Document 06/18/24 08:20 LRN (Rec: 06/18/24 09:02 LRN [id number]) Out-Patient Physical Therapy Visit Information Visit Information Visit Type Progress Note Visit Start Time 08:20 Visit Stop Time 08:58 Visit Number 2 Evaluation Information Evaluation Date 06/03/24 Precautions Precautions 2022 PT-OP-B Current Condition Start: 05/16/24 19:17 Freq: Status: Active Protocol: Document 06/03/24 08:17 LRN (Rec: 06/03/24 09:05 LRN [id number]) Current Condition History of Current Condition Onset Date 07/2023 Current Complaints Urinary leakage w/laugh, sneeze, cough, holding too long, squat sometimes History of Current Condition Pt reports onset of stress incontinence after of daughter. Born 07/13/2023 (10 months old ago). From November to April was coughing a lot due to illness of her and daughter. 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 Pt is . Pt is Prior Treatments and Tests PT in [place] in 12/2021 for bilateral hip pain. Developmental History Developmental History Daughter delivered via C- section, 10# 4oz. Pt is 4'11 , wgt 185#. Treatment Goals Patient/Caregiver Goals Pt goals: -Improve PF strength to not leak with exercise rowing and/ or laughing (sneeze, cough, laughing). -HEP. 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 PT-OP-C Subjective Start: 05/16/24 19:17 Freq: Status: Active Protocol: Document 06/18/24 08:20 LRN (Rec: 06/18/24 09:02 LRN [id number]) OP-PT Subjective Patient Comments Patient Comments Doing HEP. Went to and didn't see anything and did a PAP and everything was negative. Had just started and hormonal control pill, which may have contributed to the redness and discomfort along with the pad . She has since stopped wearing a pad. PT-OP-I Pelvic Floor Start: 05/16/24 19:17 Freq: Status: Active Protocol: Document 06/18/24 08:20 LRN (Rec: 06/18/24 09:02 LRN [id number]) Pelvic Floor Assessment SEMG (uV) Baseline 4.1 Quick Contraction 10.1 10 Second Contraction 9.9 Recruitment Pattern Good Relaxation Fair Holding Fair Stability of Hold Poor/Slow SEMG Stability of Rest Poor/Slow Comments Pelvic Floor Comments No tenderness around the labia minora and PF clock. No significant redness around the PF clock. Stronger contraction on R lateral wall with tightness/?hypertrophy around the L lateral wall. Quick Flicks: 10 reps strength (uV's): avg work , avg rest . 20 reps strength (uV's): avg work , avg rest . Long Holds: 10 reps strength (uV's): avg work 10.1, avg rest 6.0. 20 rep s strength (uV's): avg work 10.3, avg rest 5.5. PT-OP-J Posture/Palpation/Skin Start: 05/16/24 19:17 Freq: Status: Active Protocol: Document 06/03/24 08:17 LRN (Rec: 06/03/24 09:05 LRN [id number]) Posture Evaluation Position Standing Head/C-Spine Posture Forward Head Shoulder Posture (R) Elevated Scapula Posture (R) Elevated Pelvis Posture Anteriorly Tilted Knee Posture (L) Genu Valgus,(R) Genu Valgus Comments Posture Comments Dowagers hump, straightened upper T/S spine. Palpation Assessment Location Abdomen Palpation Location Diastasis Rectus Palpation Details Umbilicus 5 above: Closed Umbilicus 4 above: 1 finger width (~2.5 cm) Umbilicus 3 above: 2 finger widths Umbilicus 2 above: 1.5 finger widths Umbilicus 1 above: 1.5 finger widths Umbilicus Umbilicus: 1 below: closed PT-OP-K Range of Motion Start: 05/16/24 19:17 Freq: Status: Active Protocol: Document 06/03/24 08:17 LRN (Rec: 06/03/24 09:05 LRN [id number]) Lumbar Spine Range of Motion Lumbar Spine Active Degrees Testing Position Standing Flexion 110 Extension 15 Rotation Left 45 Rotation Right 40 Lateral Flexion Left 25 Lateral Flexion Right 13 Hip Goniometric Range of Motion Hip Right Passive Testing Position Supine Internal Rotation 35 External Rotation 65 Left Passive Testing Position Supine Internal Rotation 35 External Rotation 85 PT-OP-M Strength Start: 05/16/24 19:17 Freq: Status: Active Protocol: Document 06/03/24 08:17 LRN (Rec: 06/03/24 09:05 LRN [id number]) Trunk Strength Trunk Manual Muscle Testing Core Stabilization Loss of core stability with resistance to R hip ext, and mild loss of stability with other resisted hip motions. Hip Strength Hip Manual Muscle Testing Right Adduction 4+ Good+ Comments Strength is 5/5 except as indicated above. Left External Rotation 3+ Fair+ Comments Strength is 5/5 except as indicated above. PT-OP-Q Treatments Start: 05/16/24 19:17 Freq: Status: Active Protocol: Document 06/18/24 08:20 LRN (Rec: 06/18/24 09:02 LRN [id number]) Therapeutic Exercises Supine Exercises Vemg PF strengthening Supine Exercise Name Quick Flicks, Long holds. Resting of PF Reps/Minutes 36' Comments See PF assessment. Self-Care/Home Management Treatment Education Other Education Pt did not recall being issued bladder diary; therefore reissued diary handout & educated pt in use of Bladder Diary and I/S in tracking for 1 week. Activities Self-Care/Home Management Activities Issued Bladder diary. 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 Short Term Goal (STG) Pt will be educated in core pressure management with transfers, ADLs and exercise. STG Duration 07/05/24 Fci Goal (LTG) Pt will be able to lift and exercise (row, squat) without urinary leakage 90% of the time, coordinating breath/ Kegel with exercise. LTG Duration 08/30/24 Two Impairment PF weakness (2/5, except posterior is 3/5) Short Term Goal (STG) Pt will be educated in PF contractions w/o substitute muscles (primarily abdominal). 06/18/24: Training in PF contractions in isolation of substitute muscles, mostly able to perform in isolation. STG Duration 07/05/24 (06/18/24: MET GOAL) [facility]ci Goal (LTG) Improve PF strength to not leak with sneeze, cough, laughing. LTG Duration 08/30/24 One Impairment Pt lacks appropriate self care HEP. Short Term Goal (STG) Education in vulvar/genital care. STG Duration 07/05/24 Archives Specialist Goal (LTG) Pt will be independent with a self care HEP of PF strengthening w/breath, positional ex's and hip ROM exercises. LTG Duration 08/30/24 Assessment Summary Assessment 28 yo female with JUANITA, leaking with coughing, sneezing, lifting, exercise and with a strong urge, probably due to weakness and pain inhibition; dec'd R > L hip mobility and kurt hip IR, and dec'd trunk R lateral flex and trunk rot strength. Today, pt shows no redness/tenderness to palpation around the PF clock and labia minora. Tightness/? hypertrophy of L lateral wall with stronger contraction at R lateral wall felt. PAP results reportedly are cleared of infection. Per Vemg strengthening, pt had good PF quick holds strength, fair endurance hold, poor stability with relaxation consistancy and holding. Pt mostly is able to do PF in isolation of substitute muscles. Physical Therapy Plan Frequency and Duration Frequency of Treatment 1x/Week Duration of treatment (weeks) 12 Plan of Care Start Date 06/03/24 Plan of Care End Date 08/30/24 Therapeutic Interventions Therapeutic Interventions Home Exercise Program,Joint Mobilizations,Manual Therapy, Neuromuscular Re-education, Self-Care/Home Management,Soft Tissue Mobilization,Taping, Therapeutic Activities, Therapeutic Exercises Modalities Biofeedback Next Visit Focus/Plan Next Note Type Treatment Note Next Visit Plan Review Bladder dairy and discuss fluid intake (AM/PM), frequency, & nighttime voiding frequency. Pt Education in coordination of proper breaths with ADLs, transfers, body mechanics and exercise. Pt education proper vulvar and perineal care with handout issued. Hip stretch (IR R>L, ER L>R). PF strengthening (anterior & posterior) in isolation of substitute muscles, Core strengthening (rotation, TA).
--- NOTE | 2024-06-25 09:14 | PT.OTN ---
Current Diagnoses Stress incontinence (female) (male) (06/25/24) Physical Therapy Treatment Note PT-OP-A Visit Information Start: 05/16/24 19:17 Freq: Status: Active Protocol: Document 06/25/24 08:04 LRN (Rec: 06/25/24 09:13 LRN [id number]) Out-Patient Physical Therapy Visit Information Visit Information Visit Type Treatment Note Visit Start Time 08:04 Visit Stop Time 08:45 Visit Number 3 Evaluation Information Evaluation Date 06/03/24 Precautions Precautions 2022 PT-OP-B Current Condition Start: 05/16/24 19:17 Freq: Status: Active Protocol: Document 06/03/24 08:17 LRN (Rec: 06/03/24 09:05 LRN [id number]) Current Condition History of Current Condition Onset Date 07/2023 Current Complaints Urinary leakage w/laugh, sneeze, cough, holding too long, squat sometimes History of Current Condition Pt reports onset of stress incontinence after of daughter. Born 07/13/2023 (10 months old ago). From November to April was coughing a lot due to illness of her and daughter. 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 Pt is . Pt is Prior Treatments and Tests PT in [place] in 12/2021 for bilateral hip pain. Developmental History Developmental History Daughter delivered via C- section, 10# 4oz. Pt is 4'11 , wgt 185#. Treatment Goals Patient/Caregiver Goals Pt goals: -Improve PF strength to not leak with exercise rowing and/ or laughing (sneeze, cough, laughing). -HEP. 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 PT-OP-C Subjective Start: 05/16/24 19:17 Freq: Status: Active Protocol: Document 06/25/24 08:04 LRN (Rec: 06/25/24 09:13 LRN [id number]) OP-PT Subjective Patient Comments Patient Comments Was on vacation so only did one day of bladder diary. Pt on period; therefore did not bring electrode. PT-OP-I Pelvic Floor Start: 05/16/24 19:17 Freq: Status: Active Protocol: Document 06/18/24 08:20 LRN (Rec: 06/18/24 09:02 LRN [id number]) Pelvic Floor Assessment SEMG (uV) Baseline 4.1 Quick Contraction 10.1 10 Second Contraction 9.9 Recruitment Pattern Good Relaxation Fair Holding Fair Stability of Hold Poor/Slow SEMG Stability of Rest Poor/Slow Comments Pelvic Floor Comments No tenderness around the labia minora and PF clock. No significant redness around the PF clock. Stronger contraction on R lateral wall with tightness/?hypertrophy around the L lateral wall. Quick Flicks: 10 reps strength (uV's): avg work , avg rest . 20 reps strength (uV's): avg work , avg rest . Long Holds: 10 reps strength (uV's): avg work 10.1, avg rest 6.0. 20 rep s strength (uV's): avg work 10.3, avg rest 5.5. PT-OP-J Posture/Palpation/Skin Start: 05/16/24 19:17 Freq: Status: Active Protocol: Document 06/03/24 08:17 LRN (Rec: 06/03/24 09:05 LRN [id number]) Posture Evaluation Position Standing Head/C-Spine Posture Forward Head Shoulder Posture (R) Elevated Scapula Posture (R) Elevated Pelvis Posture Anteriorly Tilted Knee Posture (L) Genu Valgus,(R) Genu Valgus Comments Posture Comments Dowagers hump, straightened upper T/S spine. Palpation Assessment Location Abdomen Palpation Location Diastasis Rectus Palpation Details Umbilicus 5 above: Closed Umbilicus 4 above: 1 finger width (~2.5 cm) Umbilicus 3 above: 2 finger widths Umbilicus 2 above: 1.5 finger widths Umbilicus 1 above: 1.5 finger widths Umbilicus Umbilicus: 1 below: closed PT-OP-K Range of Motion Start: 05/16/24 19:17 Freq: Status: Active Protocol: Document 06/03/24 08:17 LRN (Rec: 06/03/24 09:05 LRN [id number]) Lumbar Spine Range of Motion Lumbar Spine Active Degrees Testing Position Standing Flexion 110 Extension 15 Rotation Left 45 Rotation Right 40 Lateral Flexion Left 25 Lateral Flexion Right 13 Hip Goniometric Range of Motion Hip Right Passive Testing Position Supine Internal Rotation 35 External Rotation 65 Left Passive Testing Position Supine Internal Rotation 35 External Rotation 85 PT-OP-M Strength Start: 05/16/24 19:17 Freq: Status: Active Protocol: Document 06/03/24 08:17 LRN (Rec: 06/03/24 09:05 LRN [id number]) Trunk Strength Trunk Manual Muscle Testing Core Stabilization Loss of core stability with resistance to R hip ext, and mild loss of stability with other resisted hip motions. Hip Strength Hip Manual Muscle Testing Right Adduction 4+ Good+ Comments Strength is 5/5 except as indicated above. Left External Rotation 3+ Fair+ Comments Strength is 5/5 except as indicated above. PT-OP-Q Treatments Start: 05/16/24 19:17 Freq: Status: Active Protocol: Document 06/25/24 08:04 LRN (Rec: 06/25/24 09:13 LRN [id number]) Therapeutic Exercises Supine Exercises Long Hold BKFO w/TB Supine Exercise Name Wedge/TB, knees flexed ( preferred position over legs on bolster) Equipment Used Wedge/Lv2 TB Reps/Minutes 3 breath hold with ball squeeze/6 breath relax x 4 Long hold ball squeeze Supine Exercise Name Wedge/Ball, knees flexed ( preferred position over legs on bolster) Equipment Used Wedge/Ball Reps/Minutes 3 breath hold with ball squeeze/6 breath relax x 4 Long Hold Kegels Supine Exercise Name Wedge/Ball, knees flexed ( preferred position over legs on bolster) Equipment Used Wedge Reps/Minutes 10 SH/20 SR, x 4 Comments Cued to breathe, and isolate PF ms. Quick Kegels Supine Exercise Name Wedge, knees flexed (preferred position over legs on bolster ) Equipment Used Wedge Reps/Minutes 1 SH/2SR, 10x 3 Comments Cued to breathe, and isolate PF ms. Self-Care/Home Management Treatment Education Other Education Bladder diary review. Discussed fluid intake/output (norms); times between voids ( hers, ~every 2 hrs due to work ), recommending sipping through the day as much as possible; fluid intake amts, spreading out of fluid intake; norms for fluid intake/output ; and nighttime voiding, recommending urinating before going to bed. Activities Self-Care/Home Management Activities Issued & reviewed sitting hip IR/ER with TB and I/S for towel roll squeeze for Quick and Long hold Kegels. 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 Short Term Goal (STG) Pt will be educated in core pressure management with transfers, ADLs and exercise. STG Duration 07/05/24 Care Home Goal (LTG) Pt will be able to lift and exercise (row, squat) without urinary leakage 90% of the time, coordinating breath/ Kegel with exercise. LTG Duration 08/30/24 Two Impairment PF weakness (2/5, except posterior is 3/5) Short Term Goal (STG) Pt will be educated in PF contractions w/o substitute muscles (primarily abdominal). 06/18/24: Training in PF contractions in isolation of substitute muscles, mostly able to perform in isolation. STG Duration 07/05/24 (06/18/24: MET GOAL) Planning Consultant Goal (LTG) Improve PF strength to not leak with sneeze, cough, laughing. LTG Duration 08/30/24 One Impairment Pt lacks appropriate self care HEP. Short Term Goal (STG) Education in vulvar/genital care. STG Duration 07/05/24 Planning Consultant Goal (LTG) Pt will be independent with a self care HEP of PF strengthening w/breath, positional ex's and hip ROM exercises. 06/03/24: Quick, Long, Aggrevator Kegels 06/25/24: Quick, Long hold Kegel with AD squeeze & TB; in supine on pillows for Kegels. LTG Duration 08/30/24 progressed 06/25/24 Assessment Summary Assessment Per bladder diary, pt is drinking a good amount of fluid, including one coffee first in morning. 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 Small leakage (x3) with sneezing, pumping, and laughing. PF strengthening needed. Physical Therapy Plan Frequency and Duration Frequency of Treatment 1x/Week Duration of treatment (weeks) 12 Plan of Care Start Date 06/03/24 Plan of Care End Date 08/30/24 Next Visit Focus/Plan Next Note Type Treatment Note Next Visit Plan Next: Check for labia pain and redness (?tearing). Assess response to changes in fluid intake, positioning (standing hamstring stretch position) before voiding, sitting longer to void, & review HEP (in supine) of Kegels with hips elevated and with ball squeeze . Pt Education in coordination of proper breaths with ADLs, transfers, body mechanics and exercise. Start stretch HEP (IR R>L, ER L>R). Pt education proper vulvar and perineal care with handout issued. STM: abdominal soft tissue ( bladder) mobility, LB/hips. Core strengthening (rotation for upper Abdomen DR, TA). Strengthen PF (ex's and Vemg biofeedback). POC: Pt education, Manual therapy. Biofeedback with vaginal sensor for PF >< awareness and strengthening, Therapeutic Exercises, Therapeutic Activities, Neuromuscular Reeducation.
--- NOTE | 2024-07-25 16:36 | PT.OTN ---
Current Diagnoses Stress incontinence (female) (male) (07/25/24) Physical Therapy Treatment Note PT-OP-A Visit Information Start: 05/16/24 19:17 Freq: Status: Active Protocol: Document 07/25/24 09:50 LRN (Rec: 07/25/24 10:43 LRN [id number]) Out-Patient Physical Therapy Visit Information Visit Information Visit Type Treatment Note Visit Start Time 09:50 Visit Stop Time 10:36 Visit Number 4 PT-OP-B Current Condition Start: 05/16/24 19:17 Freq: Status: Active Protocol: Document 06/03/24 08:17 LRN (Rec: 06/03/24 09:05 LRN [id number]) Current Condition History of Current Condition Onset Date 07/2023 Current Complaints Urinary leakage w/laugh, sneeze, cough, holding too long, squat sometimes History of Current Condition Pt reports onset of stress incontinence after of daughter. Born 07/13/2023 (10 months old ago). From November to April was coughing a lot due to illness of her and daughter. 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 Pt is . Pt is Prior Treatments and Tests PT in [place] in 12/2021 for bilateral hip pain. Developmental History Developmental History Daughter delivered via C- section, 10# 4oz. Pt is 4'11 , wgt 185#. Treatment Goals Patient/Caregiver Goals Pt goals: -Improve PF strength to not leak with exercise rowing and/ or laughing (sneeze, cough, laughing). -HEP. 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 PT-OP-C Subjective Start: 05/16/24 19:17 Freq: Status: Active Protocol: Document 07/25/24 09:50 LRN (Rec: 07/25/24 10:43 LRN [id number]) OP-PT Subjective Patient Comments Patient Comments Not . Not leaking as much and going back to gym and doesn't feel she is leaking as much with deep squat. Jogging causes leakage , year coming post , so she must run 1.5 miles ever month, just did a run yesterday. Has been better about sipping water. Has weaned from . PT-OP-I Pelvic Floor Start: 05/16/24 19:17 Freq: Status: Active Protocol: Document 06/18/24 08:20 LRN (Rec: 06/18/24 09:02 LRN [id number]) Pelvic Floor Assessment SEMG (uV) Baseline 4.1 Quick Contraction 10.1 10 Second Contraction 9.9 Recruitment Pattern Good Relaxation Fair Holding Fair Stability of Hold Poor/Slow SEMG Stability of Rest Poor/Slow Comments Pelvic Floor Comments No tenderness around the labia minora and PF clock. No significant redness around the PF clock. Stronger contraction on R lateral wall with tightness/?hypertrophy around the L lateral wall. Quick Flicks: 10 reps strength (uV's): avg work , avg rest . 20 reps strength (uV's): avg work , avg rest . Long Holds: 10 reps strength (uV's): avg work 10.1, avg rest 6.0. 20 rep s strength (uV's): avg work 10.3, avg rest 5.5. PT-OP-J Posture/Palpation/Skin Start: 05/16/24 19:17 Freq: Status: Active Protocol: Document 06/03/24 08:17 LRN (Rec: 06/03/24 09:05 LRN [id number]) Posture Evaluation Position Standing Head/C-Spine Posture Forward Head Shoulder Posture (R) Elevated Scapula Posture (R) Elevated Pelvis Posture Anteriorly Tilted Knee Posture (L) Genu Valgus,(R) Genu Valgus Comments Posture Comments Dowagers hump, straightened upper T/S spine. Palpation Assessment Location Abdomen Palpation Location Diastasis Rectus Palpation Details Umbilicus 5 above: Closed Umbilicus 4 above: 1 finger width (~2.5 cm) Umbilicus 3 above: 2 finger widths Umbilicus 2 above: 1.5 finger widths Umbilicus 1 above: 1.5 finger widths Umbilicus Umbilicus: 1 below: closed PT-OP-K Range of Motion Start: 05/16/24 19:17 Freq: Status: Active Protocol: Document 06/03/24 08:17 LRN (Rec: 06/03/24 09:05 LRN [id number]) Lumbar Spine Range of Motion Lumbar Spine Active Degrees Testing Position Standing Flexion 110 Extension 15 Rotation Left 45 Rotation Right 40 Lateral Flexion Left 25 Lateral Flexion Right 13 Hip Goniometric Range of Motion Hip Right Passive Testing Position Supine Internal Rotation 35 External Rotation 65 Left Passive Testing Position Supine Internal Rotation 35 External Rotation 85 PT-OP-M Strength Start: 05/16/24 19:17 Freq: Status: Active Protocol: Document 06/03/24 08:17 LRN (Rec: 06/03/24 09:05 LRN [id number]) Trunk Strength Trunk Manual Muscle Testing Core Stabilization Loss of core stability with resistance to R hip ext, and mild loss of stability with other resisted hip motions. Hip Strength Hip Manual Muscle Testing Right Adduction 4+ Good+ Comments Strength is 5/5 except as indicated above. Left External Rotation 3+ Fair+ Comments Strength is 5/5 except as indicated above. PT-OP-Q Treatments Start: 05/16/24 19:17 Freq: Status: Active Protocol: Document 07/25/24 09:50 LRN (Rec: 07/25/24 10:43 LRN [id number]) Therapeutic Exercises Supine Exercises Piriformis Supine Exercise Name ankle over knee>opp KTC, & knee to opp shoulder Side bilateral Reps/Minutes 8' Lateral hip Stretch Side bilateral Reps/Minutes 6' Comments Extra time needed for trng & determining max cornell stretch Fig 4 stretch Side left Reps/Minutes 3' Comments Extra time needed for trng & determining max cornell stretch Standing Exercises Kegel w/ball sqeeze/hip ER-AB Standing Exercise Name Standing hips higher than pelvis for Kegels w/balls squeeze/TB Side bilateral Resistance Stretching btn Quick and Long hold ex's. Reps/Minutes Quick Kegel 10x 3, and 10 SH/ 10SR x 6 each direction except long hold Plie Therapeutic Activity Therapeutic Activity Hip Hinging Name Hip hinging with sit<>stand and squat, w/use of cane Reps/Minutes 3' Comments Pt showed good understanding Transfers coordinating breath/Kegel Name Stand<>sit<>sup coordinating with breath/Kegel Reps/Minutes 5' Comments Pt education in core pressure management. Self-Care/Home Management Treatment Activities Self-Care/Home Management Activities Issued & reviewed HEP: Hip stretches, Transfers and ADLs coordinating breath/kegels for core pressure mgmt, vulvar/ genital care. 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 Short Term Goal (STG) Pt will be educated in core pressure management with transfers, ADLs and exercise. 07/25/24: Pt educated in core pressure mgmt for transfers, ADLs. STG Duration 07/05/24 progressed 07/25/24 (need educ with ex) Longterm Goal (LTG) Pt will be able to lift and exercise (row, squat) without urinary leakage 90% of the time, coordinating breath/ Kegel with exercise. LTG Duration 08/30/24 Two Impairment PF weakness (2/5, except posterior is 3/5) Short Term Goal (STG) Pt will be educated in PF contractions w/o substitute muscles (primarily abdominal). 06/18/24: Training in PF contractions in isolation of substitute muscles, mostly able to perform in isolation. STG Duration 07/05/24 (06/18/24: MET GOAL) Longterm Goal (LTG) Improve PF strength to not leak with sneeze, cough, laughing. 07/25/24: NO leakage with cough, sneeze or laugh. LTG Duration 08/30/24 (07/25/24: MET GOAL ) One Impairment Pt lacks appropriate self care HEP. Short Term Goal (STG) Education in vulvar/genital care. 07/25/24: Pt issued handout for vulvar/genital care STG Duration 07/05/24 progressed 07/25/24 Longterm Goal (LTG) Pt will be independent with a self care HEP of PF strengthening w/breath, positional ex's and hip ROM exercises. 06/03/24: Quick, Long, Aggrevator Kegels 06/25/24: Quick, Long hold Kegel with AD squeeze & TB; in supine on pillows for Kegels. 07/25/24: HEP: Hip stretches , Transfers and ADLs coordinating breath/kegels for core pressure mgmt, vulvar/ genital care. LTG Duration 08/30/24 progressed 07/25/24 Assessment Summary Assessment 28 yo female with JUANITA, leaking with exercise and dec'd R > L hip mobility and kurt hip IR, and dec'd trunk R lateral flex and trunk rot strength. Less leaking with coughing, sneezing, lifting and a strong urge. Today she showed good understanding of hip stretches issued and very good understanding of managing her core pressure and hip hinging. Pt started running and leaked; therefore pt needs to further strengthen before running, although she is required to run every month 1. 5 miles. Pt with core and PF instability/weakness. + response to PF HEP thus far. Physical Therapy Plan Frequency and Duration Frequency of Treatment 1x/Week Duration of treatment (weeks) 12 Plan of Care Start Date 06/03/24 Plan of Care End Date 08/30/24 Next Visit Focus/Plan Next Note Type Treatment Note Next Visit Plan Next: Check for labia pain/ redness ?tearing and if pt saw MD for estradial?. Assess response to sitting longer to void. Monitor for coordination of proper breaths with ADLs, transfers, body mechanics and exercise. Review HEP (IR R>L, ER L>R). Discuss proper vulvar and perineal care regarding handout issued. STM: abdominal soft tissue ( bladder) mobility, LB/hips. Core strengthening (rotation for upper Abdomen DR, TA). Strengthen PF (ex's and Vemg biofeedback). POC: Pt education, Manual therapy. Biofeedback with vaginal sensor for PF >< awareness and strengthening, Therapeutic Exercises, Therapeutic Activities, Neuromuscular Reeducation.
--- NOTE | 2024-08-09 16:21 | PT.OTN ---
Current Diagnoses Stress incontinence (female) (male) (08/09/24) Physical Therapy Treatment Note PT-OP-A Visit Information Start: 05/16/24 19:17 Freq: Status: Active Protocol: Document 08/09/24 13:04 LRN (Rec: 08/09/24 13:51 LRN [id number]) Out-Patient Physical Therapy Visit Information Visit Information Visit Type Treatment Note Visit Start Time 13:04 Visit Stop Time 13:50 Visit Number 5 Evaluation Information Evaluation Date 06/03/24 Precautions Precautions 2022 PT-OP-B Current Condition Start: 05/16/24 19:17 Freq: Status: Active Protocol: Document 06/03/24 08:17 LRN (Rec: 06/03/24 09:05 LRN [id number]) Current Condition History of Current Condition Onset Date 07/2023 Current Complaints Urinary leakage w/laugh, sneeze, cough, holding too long, squat sometimes History of Current Condition Pt reports onset of stress incontinence after of daughter. Born 07/13/2023 (10 months old ago). From November to April was coughing a lot due to illness of her and daughter. 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 Pt is . Pt is Prior Treatments and Tests PT in [place] in 12/2021 for bilateral hip pain. Developmental History Developmental History Daughter delivered via C- section, 10# 4oz. Pt is 4'11 , wgt 185#. Treatment Goals Patient/Caregiver Goals Pt goals: -Improve PF strength to not leak with exercise rowing and/ or laughing (sneeze, cough, laughing). -HEP. 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 PT-OP-C Subjective Start: 05/16/24 19:17 Freq: Status: Active Protocol: Document 08/09/24 13:04 LRN (Rec: 08/09/24 13:51 LRN [id number]) OP-PT Subjective Patient Comments Patient Comments Hip Hinging going to bathroom. Core is stronger, doing Ju- Jitsu again. No urinary leakage with exercise, and not wearing pads anymore. Went to concer w/o accident and holding urine and able to go to bathroom w/o leaking. Feels therapy is needed for awareness of breathing and better mechanics and posture. States primary care provider who said she saw no redness and felt she was not a candidate for estradiol. No quesions regarding genital and vulvar care. Change of medication for anxiety, not sure if SSR or SSI, can't tell if it is helpful. PT-OP-I Pelvic Floor Start: 05/16/24 19:17 Freq: Status: Active Protocol: Document 08/09/24 13:04 LRN (Rec: 08/09/24 13:51 LRN [id number]) Pelvic Floor Assessment SEMG (uV) Baseline 4.5 Contraction Ability Muscle Endurance (Seconds) 2 Number of Quick Contractions In 10 4 Seconds Comments Pelvic Floor Comments Pre treatment, PF baseline is 4.5 mV's, Abdominal Baseline is 0.9 mV's. Post treatment, PF baseline is 3.8 mV's, Abdominal Baseline is 0.7 mV's. PT-OP-J Posture/Palpation/Skin Start: 05/16/24 19:17 Freq: Status: Active Protocol: Document 06/03/24 08:17 LRN (Rec: 06/03/24 09:05 LRN [id number]) Posture Evaluation Position Standing Head/C-Spine Posture Forward Head Shoulder Posture (R) Elevated Scapula Posture (R) Elevated Pelvis Posture Anteriorly Tilted Knee Posture (L) Genu Valgus,(R) Genu Valgus Comments Posture Comments Dowagers hump, straightened upper T/S spine. Palpation Assessment Location Abdomen Palpation Location Diastasis Rectus Palpation Details Umbilicus 5 above: Closed Umbilicus 4 above: 1 finger width (~2.5 cm) Umbilicus 3 above: 2 finger widths Umbilicus 2 above: 1.5 finger widths Umbilicus 1 above: 1.5 finger widths Umbilicus Umbilicus: 1 below: closed PT-OP-K Range of Motion Start: 05/16/24 19:17 Freq: Status: Active Protocol: Document 06/03/24 08:17 LRN (Rec: 06/03/24 09:05 LRN [id number]) Lumbar Spine Range of Motion Lumbar Spine Active Degrees Testing Position Standing Flexion 110 Extension 15 Rotation Left 45 Rotation Right 40 Lateral Flexion Left 25 Lateral Flexion Right 13 Hip Goniometric Range of Motion Hip Right Passive Testing Position Supine Internal Rotation 35 External Rotation 65 Left Passive Testing Position Supine Internal Rotation 35 External Rotation 85 PT-OP-M Strength Start: 05/16/24 19:17 Freq: Status: Active Protocol: Document 06/03/24 08:17 LRN (Rec: 06/03/24 09:05 LRN [id number]) Trunk Strength Trunk Manual Muscle Testing Core Stabilization Loss of core stability with resistance to R hip ext, and mild loss of stability with other resisted hip motions. Hip Strength Hip Manual Muscle Testing Right Adduction 4+ Good+ Comments Strength is 5/5 except as indicated above. Left External Rotation 3+ Fair+ Comments Strength is 5/5 except as indicated above. PT-OP-Q Treatments Start: 05/16/24 19:17 Freq: Status: Active Protocol: Document 08/09/24 13:04 LRN (Rec: 08/09/24 13:51 LRN [id number]) Therapeutic Exercises Supine Exercises Iliopsoas stretch Side bilateral Reps/Minutes 4' Comments Cued to hold stretch longer Piriformis Supine Exercise Name ankle over knee>opp KTC, & knee to opp shoulder Side bilateral Reps/Minutes 4' Comments cued to hold stretch longer Lateral hip Stretch Side bilateral Reps/Minutes 4' Comments Cued to hold stretch longer Fig 4 stretch Side left Reps/Minutes 4' Comments Cued to hold stretch longer Therapeutic Activity Therapeutic Activity Hip Hinging Name Hip hinging with sit<>stand and squat, w/use of cane Reps/Minutes 3' Comments Pt showed good understanding Transfers coordinating breath/Kegel Name Stand<>sit<>sup coordinating with breath/Kegel Reps/Minutes 5' Comments Pt education in core pressure management. Neuro Re-Education Treatment Other Activities sEMG/R abdominal EMG Details Vaginal electode, Abdominal electrode Reps/Duration 34' Comments R Abdominal electrode: Above ASIS towards lat trunk superiorly (placed with pt in L sidelie). PF contraction training in isolation of abdominals. 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 Short Term Goal (STG) Pt will be educated in core pressure management with transfers, ADLs and exercise. 07/25/24: Pt educated in core pressure mgmt for transfers, ADLs. STG Duration 07/05/24 progressed 07/25/24 (need educ with ex) Hose Tubing Backer Goal (LTG) Pt will be able to lift and exercise (row, squat) without urinary leakage 90% of the time, coordinating breath/ Kegel with exercise. LTG Duration 08/30/24 Two Impairment PF weakness (2/5, except posterior is 3/5) Short Term Goal (STG) Pt will be educated in PF contractions w/o substitute muscles (primarily abdominal). 06/18/24: Training in PF contractions in isolation of substitute muscles, mostly able to perform in isolation. STG Duration 07/05/24 (06/18/24: MET GOAL) [facility]ci Goal (LTG) Improve PF strength to not leak with sneeze, cough, laughing. 07/25/24: NO leakage with cough, sneeze or laugh. LTG Duration 08/30/24 (07/25/24: MET GOAL ) One Impairment Pt lacks appropriate self care HEP. Short Term Goal (STG) Education in vulvar/genital care. 07/25/24: Pt issued handout for vulvar/genital care. 08/09/24: Pt has no questions or concerns regarding vulvar /genital care. STG Duration 07/05/24 (08/09/24: MET GOAL ) [facility]ci Goal (LTG) Pt will be independent with a self care HEP of PF strengthening w/breath, positional ex's and hip ROM exercises. 06/03/24: Quick, Long, Aggrevator Kegels 06/25/24: Quick, Long hold Kegel with AD squeeze & TB; in supine on pillows for Kegels. 07/25/24: HEP: Hip stretches , Transfers and ADLs coordinating breath/kegels for core pressure mgmt, vulvar/ genital care. LTG Duration 08/30/24 progressed 07/25/24 Assessment Summary Assessment Pt noting better emptying with sitting longer to void. Estradiol use denied from primary care physician. She demonstrates good coordiation of breath w/ transfers. States having foot on step stool with dishwashing has helped her. Good recall of HEP (IR R>L, ER L>R). Labia pain/redness no longer present. Red discoloration streak at labia below clitoris, with no pain or discomfort when Q-tip pressure applied. Pt shows weak PF with quick and long hold contractions. Pt's LBP and difficulty lying supine may be hindering her ability to perform PF contractions; therefore STM will be needed. Physical Therapy Plan Frequency and Duration Frequency of Treatment 1x/Week Duration of treatment (weeks) 12 Plan of Care Start Date 06/03/24 Plan of Care End Date 08/30/24 Next Visit Focus/Plan Next Note Type Treatment Note Next Visit Plan Next: New POC. Sacral Balancing. Monitor for coordination of proper breaths with body mechanics, transfers, and exercise. STM: abdominal soft tissue ( bladder) mobility, LB/hips. Core strengthening (rotation for upper Abdomen DR, TA). Strengthen PF (ex's and Vemg biofeedback). POC: Pt education, Manual therapy. Biofeedback with vaginal sensor for PF >< awareness and strengthening, Therapeutic Exercises, Therapeutic Activities, Neuromuscular Reeducation.
--- NOTE | 2024-08-15 16:52 | PT.OTN ---
Current Diagnoses Stress incontinence (female) (male) (08/15/24) Physical Therapy Treatment Note PT-OP-A Visit Information Start: 05/16/24 19:17 Freq: Status: Active Protocol: Document 08/15/24 07:45 LRN (Rec: 08/15/24 08:21 LRN [id number]) Out-Patient Physical Therapy Visit Information Visit Information Visit Type Treatment Note Visit Start Time 07:45 Visit Stop Time 08:19 Visit Number 6 Evaluation Information Evaluation Date 06/03/24 Precautions Precautions 2022 PT-OP-B Current Condition Start: 05/16/24 19:17 Freq: Status: Active Protocol: Document 06/03/24 08:17 LRN (Rec: 06/03/24 09:05 LRN [id number]) Current Condition History of Current Condition Onset Date 07/2023 Current Complaints Urinary leakage w/laugh, sneeze, cough, holding too long, squat sometimes History of Current Condition Pt reports onset of stress incontinence after of daughter. Born 07/13/2023 (10 months old ago). From November to April was coughing a lot due to illness of her and daughter. 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 Pt is . Pt is Prior Treatments and Tests PT in [place] in 12/2021 for bilateral hip pain. Developmental History Developmental History Daughter delivered via C- section, 10# 4oz. Pt is 4'11 , wgt 185#. Treatment Goals Patient/Caregiver Goals Pt goals: -Improve PF strength to not leak with exercise rowing and/ or laughing (sneeze, cough, laughing). -HEP. 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 PT-OP-C Subjective Start: 05/16/24 19:17 Freq: Status: Active Protocol: Document 08/15/24 07:45 LRN (Rec: 08/15/24 12:01 LRN [id number]) OP-PT Subjective Patient Comments Patient Comments Pt late due to baby diaper change need. States she feels during quick and long hold contractions when her muscles are starting to fatigue. PT-OP-I Pelvic Floor Start: 05/16/24 19:17 Freq: Status: Active Protocol: Document 08/15/24 07:45 LRN (Rec: 08/15/24 08:21 LRN [id number]) Pelvic Floor Assessment SEMG (uV) Baseline 4.7 Quick Contraction 14.9 10 Second Contraction 16.8 Recruitment Pattern Fair Relaxation Fair Holding Fair Stability of Hold Fair SEMG Stability of Rest Fair Comments Pelvic Floor Comments Initial Assessment positioning : Supine w/legs on bolster, hands across chest. Resting baseline: Very consistent at 4.7 mV's. Quick Flicks: 10 reps strength (uV's): avg work 14.9, avg rest 9.6. 20 reps strength (uV's): avg work 14.2, avg rest 9.6. Long Holds: 10 reps strength (uV's): avg work 16.8, avg rest 5.2. 20 reps strength (uV's): avg work 16.4, avg rest 5.3. PT-OP-J Posture/Palpation/Skin Start: 05/16/24 19:17 Freq: Status: Active Protocol: Document 06/03/24 08:17 LRN (Rec: 06/03/24 09:05 LRN [id number]) Posture Evaluation Position Standing Head/C-Spine Posture Forward Head Shoulder Posture (R) Elevated Scapula Posture (R) Elevated Pelvis Posture Anteriorly Tilted Knee Posture (L) Genu Valgus,(R) Genu Valgus Comments Posture Comments Dowagers hump, straightened upper T/S spine. Palpation Assessment Location Abdomen Palpation Location Diastasis Rectus Palpation Details Umbilicus 5 above: Closed Umbilicus 4 above: 1 finger width (~2.5 cm) Umbilicus 3 above: 2 finger widths Umbilicus 2 above: 1.5 finger widths Umbilicus 1 above: 1.5 finger widths Umbilicus Umbilicus: 1 below: closed PT-OP-K Range of Motion Start: 05/16/24 19:17 Freq: Status: Active Protocol: Document 06/03/24 08:17 LRN (Rec: 06/03/24 09:05 LRN [id number]) Lumbar Spine Range of Motion Lumbar Spine Active Degrees Testing Position Standing Flexion 110 Extension 15 Rotation Left 45 Rotation Right 40 Lateral Flexion Left 25 Lateral Flexion Right 13 Hip Goniometric Range of Motion Hip Right Passive Testing Position Supine Internal Rotation 35 External Rotation 65 Left Passive Testing Position Supine Internal Rotation 35 External Rotation 85 PT-OP-M Strength Start: 05/16/24 19:17 Freq: Status: Active Protocol: Document 06/03/24 08:17 LRN (Rec: 06/03/24 09:05 LRN [id number]) Trunk Strength Trunk Manual Muscle Testing Core Stabilization Loss of core stability with resistance to R hip ext, and mild loss of stability with other resisted hip motions. Hip Strength Hip Manual Muscle Testing Right Adduction 4+ Good+ Comments Strength is 5/5 except as indicated above. Left External Rotation 3+ Fair+ Comments Strength is 5/5 except as indicated above. PT-OP-Q Treatments Start: 05/16/24 19:17 Freq: Status: Active Protocol: Document 08/15/24 07:45 LRN (Rec: 08/15/24 12:01 LRN [id number]) Therapeutic Exercises Supine Exercises Long Hold Kegels Supine Exercise Name Long hold PF contractions Reps/Minutes 2 SH, 4 SR x 20 with resting, f/b 2 SH/5 SR x 3 Comments Cued to breath & isolate PF; extra time to for monitoring of abdominal w/>< Quick Kegels Supine Exercise Name Quick PF contractions Reps/Minutes 10 SH, 10 SR x 20 with resting period Comments Cued to breath and isolate PF for kegel Sitting Exercises Long Hold Kegels Sitting Exercise Name Extra time for repositioning on cushion for max tolerated positioning. 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 Short Term Goal (STG) Pt will be educated in core pressure management with transfers, ADLs and exercise. 07/25/24: Pt educated in core pressure mgmt for transfers, ADLs. 08/15/24: Pt needed review for core pressure mgmt. STG Duration 07/05/24 progressed 07/25/24 (need educ with ex) Jail Goal (LTG) Pt will be able to lift and exercise (row, squat) without urinary leakage 90% of the time, coordinating breath/ Kegel with exercise. LTG Duration 08/30/24 One Impairment Pt lacks appropriate self care HEP. Short Term Goal (STG) Education in vulvar/genital care. 07/25/24: Pt issued handout for vulvar/genital care. 08/09/24: Pt has no questions or concerns regarding vulvar /genital care. STG Duration 07/05/24 (08/09/24: MET GOAL ) Jail Goal (LTG) Pt will be independent with a self care HEP of PF strengthening w/breath, positional ex's and hip ROM exercises. 06/03/24: Quick, Long, Aggrevator Kegels 06/25/24: Quick, Long hold Kegel with AD squeeze & TB; in supine on pillows for Kegels. 07/25/24: HEP: Hip stretches , Transfers and ADLs coordinating breath/kegels for core pressure mgmt, vulvar/ genital care. LTG Duration 08/30/24 progressed 07/25/24 Assessment Summary Assessment Pt is a 28 yo female with JUANITA, leaking with exercise and initially noted to have dec'd R > L hip mobility and kurt hip IR, and dec'd trunk R lateral flex and trunk rot strength. Today, she demonstrates with Quick PF contractions, her strength is improved and she is able to achieve a lower resting tone than initially, but she is slow to contract and relax, and she fatigues after 10 reps with inconsistent intensity of contraction and relaxation. Long hold contractions for endurance indicates improved strength of contraction and better holding consistancy, but resting tone is elevated. Overall her PF strength has improved but her resting tone is high and is probably why she is slow to contract and that she still is leaking, also her LBP with supine lying may be keeping her PF resting tone elevated. Physical Therapy Plan Frequency and Duration Frequency of Treatment 1x/Week Duration of treatment (weeks) 12 Plan of Care Start Date 06/03/24 Plan of Care End Date 08/30/24 Next Visit Focus/Plan Next Note Type Treatment Note Next Visit Plan Next: New POC needed, recheck PF strength, PUF. Monitor for coordination of proper breaths with body mechanics, transfers, and exercise. STM: Sacral Balancing as soon as time permits. Abdominal soft tissue (bladder) mobility , LB/hips. Core strengthening (rotation for upper Abdomen DR, TA). Strengthen PF (ex's and Vemg biofeedback). POC: Pt education, Manual therapy. Biofeedback with vaginal sensor for PF >< awareness and strengthening, Therapeutic Exercises, Therapeutic Activities, Neuromuscular Reeducation.
--- NOTE | 2024-08-20 18:29 | PT.OTN ---
Current Diagnoses Stress incontinence (female) (male) (08/20/24) Physical Therapy Treatment Note PT-OP-A Visit Information Start: 05/16/24 19:17 Freq: Status: Active Protocol: Document 08/20/24 07:43 LRN (Rec: 08/20/24 08:15 LRN [id number]) Out-Patient Physical Therapy Visit Information Visit Information Visit Type Progress Note Visit Start Time 07:43 Visit Stop Time 08:14 Visit Number 7 Evaluation Information Evaluation Date 06/03/24 Precautions Precautions 2022 PT-OP-B Current Condition Start: 05/16/24 19:17 Freq: Status: Active Protocol: Document 06/03/24 08:17 LRN (Rec: 06/03/24 09:05 LRN [id number]) Current Condition History of Current Condition Onset Date 07/2023 Current Complaints Urinary leakage w/laugh, sneeze, cough, holding too long, squat sometimes History of Current Condition Pt reports onset of stress incontinence after of daughter. Born 07/13/2023 (10 months old ago). From November to April was coughing a lot due to illness of her and daughter. 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 Pt is . Pt is Prior Treatments and Tests PT in [place] in 12/2021 for bilateral hip pain. Developmental History Developmental History Daughter delivered via C- section, 10# 4oz. Pt is 4'11 , wgt 185#. Treatment Goals Patient/Caregiver Goals Pt goals: -Improve PF strength to not leak with exercise rowing and/ or laughing (sneeze, cough, laughing). -HEP. 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 PT-OP-C Subjective Start: 05/16/24 19:17 Freq: Status: Active Protocol: Document 08/20/24 07:43 LRN (Rec: 08/20/24 08:15 LRN [id number]) OP-PT Subjective Patient Comments Patient Comments States she just started her period, so is bleeding a lot and prefers no internal exam today. Patient Questionnaires Pelvic Pain and Urgency/Frequency Patient Symptom Scale Pelvic Pain Score 1 OP-PT Pain Assessment Pain Assessment Grid Paper Pain Assessment Grid Completed No Location Gui Hips Pain Location Details Across low back Intensity 3 Scale Used Numeric (0 - 10) Description Aching PT-OP-I Pelvic Floor Start: 05/16/24 19:17 Freq: Status: Active Protocol: Document 08/15/24 07:45 LRN (Rec: 08/15/24 08:21 LRN [id number]) Pelvic Floor Assessment SEMG (uV) Baseline 4.7 Quick Contraction 14.9 10 Second Contraction 16.8 Recruitment Pattern Fair Relaxation Fair Holding Fair Stability of Hold Fair SEMG Stability of Rest Fair Comments Pelvic Floor Comments Initial Assessment positioning : Supine w/legs on bolster, hands across chest. Resting baseline: Very consistent at 4.7 mV's. Quick Flicks: 10 reps strength (uV's): avg work 14.9, avg rest 9.6. 20 reps strength (uV's): avg work 14.2, avg rest 9.6. Long Holds: 10 reps strength (uV's): avg work 16.8, avg rest 5.2. 20 reps strength (uV's): avg work 16.4, avg rest 5.3. PT-OP-J Posture/Palpation/Skin Start: 05/16/24 19:17 Freq: Status: Active Protocol: Document 06/03/24 08:17 LRN (Rec: 06/03/24 09:05 LRN [id number]) Posture Evaluation Position Standing Head/C-Spine Posture Forward Head Shoulder Posture (R) Elevated Scapula Posture (R) Elevated Pelvis Posture Anteriorly Tilted Knee Posture (L) Genu Valgus,(R) Genu Valgus Comments Posture Comments Dowagers hump, straightened upper T/S spine. Palpation Assessment Location Abdomen Palpation Location Diastasis Rectus Palpation Details Umbilicus 5 above: Closed Umbilicus 4 above: 1 finger width (~2.5 cm) Umbilicus 3 above: 2 finger widths Umbilicus 2 above: 1.5 finger widths Umbilicus 1 above: 1.5 finger widths Umbilicus Umbilicus: 1 below: closed PT-OP-K Range of Motion Start: 05/16/24 19:17 Freq: Status: Active Protocol: Document 06/03/24 08:17 LRN (Rec: 06/03/24 09:05 LRN [id number]) Lumbar Spine Range of Motion Lumbar Spine Active Degrees Testing Position Standing Flexion 110 Extension 15 Rotation Left 45 Rotation Right 40 Lateral Flexion Left 25 Lateral Flexion Right 13 Hip Goniometric Range of Motion Hip Right Passive Testing Position Supine Internal Rotation 35 External Rotation 65 Left Passive Testing Position Supine Internal Rotation 35 External Rotation 85 PT-OP-M Strength Start: 05/16/24 19:17 Freq: Status: Active Protocol: Document 06/03/24 08:17 LRN (Rec: 06/03/24 09:05 LRN [id number]) Trunk Strength Trunk Manual Muscle Testing Core Stabilization Loss of core stability with resistance to R hip ext, and mild loss of stability with other resisted hip motions. Hip Strength Hip Manual Muscle Testing Right Adduction 4+ Good+ Comments Strength is 5/5 except as indicated above. Left External Rotation 3+ Fair+ Comments Strength is 5/5 except as indicated above. PT-OP-Q Treatments Start: 05/16/24 19:17 Freq: Status: Active Protocol: Document 08/20/24 07:43 LRN (Rec: 08/20/24 08:15 LRN [id number]) Therapeutic Exercises Standing Exercises Paloff Press Side bilateral Reps/Minutes 15x each. Therapeutic Activity Therapeutic Activity Brick Or Block Maker Name Body Mechanics training for lifting, child holding, carrying, lifting over Reps/Minutes 8' Transfers coordinating breath/Kegel Name Stand<>sit<>sup coordinating with breath/Kegel Reps/Minutes 5' Comments Pt education in core pressure management. Self-Care/Home Management Treatment Activities Self-Care/Home Management Activities Issued & reviewed handout: Proper Posture: THe Edge to Safe Movement PT-OP-T Assessment and Plan Start: 05/16/24 19:17 Freq: Status: Active Protocol: Document 08/20/24 07:43 LRN (Rec: 08/20/24 08:15 LRN [id number]) Physical Therapy Assessment Rehab Potential Rehabilitation Potential Excellent Evaluation Complexity Number of Personal Factors/Comorbidities 0 Number of Body Systems Impaired 4 or More Clinical Presentation at Evaluation Evolving Impairments Impairments Activity Tolerance,Functional Activities,Pain,Posture,ROM, Soft Tissue Mobility,Strength Goals Four Impairment LBP (SIJ) in supine rated 3/10 . Short Term Goal (STG) Pt will be able to sleep on back (prior level of function) instead of on side 50% of the time at night comfortably. STG Duration 09/20/24 Penitentiary Goal (LTG) Pt will be able to perform supine PF/core ex's with pain no greater than 1/10. 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 Short Term Goal (STG) Pt will be educated in core pressure management with transfers, ADLs and exercise. 07/25/24: Pt educated in core pressure mgmt for transfers, ADLs. 08/15/24: Pt needed review for core pressure mgmt. 08/20/24: Pt shows ability to use good core pressure mgmt with transfers, and understanding with body mechanics; initiated training with exercise. STG Duration 09/20/24 progressed 08/20/24 (need further educ with ex) Penitentiary Goal (LTG) Pt will be able to lift and exercise (row, squat) without urinary leakage 90% of the time, coordinating breath/ Kegel with exercise. 08/20/24: Urinary leakage 10% of time, very little. LTG Duration 10/18/24 progressed 08/20/24 Two Impairment PF weakness (2/5, except posterior is 3/5) Short Term Goal (STG) Pt will be educated in PF contractions w/o substitute muscles (primarily abdominal). 06/18/24: Training in PF contractions in isolation of substitute muscles, mostly able to perform in isolation. STG Duration 07/05/24 (06/18/24: MET GOAL) [place] Goal (LTG) Improve PF strength to not leak with sneeze, cough, laughing. 07/25/24: NO leakage with cough, sneeze or laugh. LTG Duration 08/30/24 (07/25/24: MET GOAL ) One Impairment Pt lacks appropriate self care HEP. Short Term Goal (STG) Education in vulvar/genital care. 07/25/24: Pt issued handout for vulvar/genital care. 08/09/24: Pt has no questions or concerns regarding vulvar /genital care. STG Duration 07/05/24 (08/09/24: MET GOAL ) Penitentiary Goal (LTG) Pt will be independent with a self care HEP of PF strengthening w/breath, positional ex's and hip ROM exercises. 06/03/24: Quick, Long, Aggrevator Kegels 06/25/24: Quick, Long hold Kegel with AD squeeze & TB; in supine on pillows for Kegels. 07/25/24: HEP: Hip stretches , Transfers and ADLs coordinating breath/kegels for core pressure mgmt, vulvar/ genital care. LTG Duration 10/18/24 progressed 07/25/24 Assessment Summary Assessment Pt is a 28 yo female with JUANITA, leaking with exercise and initially noted to have dec'd R > L hip mobility and gui hip IR, and dec'd trunk R lateral flex and trunk rot strength and low back pain hindering her functional ability to lift . She is showing good core pressure mgmt with transfers and good understanding with body mechanics, but needs to learn to do with exercises. Her PF strength and endurance has improved, but her resting tone is high and is probably why she is slow to contract and that she still is leaking, also her LBP with supine lying may be keeping her PF resting tone elevated. The pt would benefit from continued skilled physical therapy to address her LBP and consequently help improve her PF strength and speed of contraction to eliminate her stress urinary incontinence. Physical Therapy Plan Frequency and Duration Frequency of Treatment 1x/Week Duration of treatment (weeks) 8 Plan of Care Start Date 08/20/24 Plan of Care End Date 10/18/24 Therapeutic Interventions Therapeutic Interventions Coordination Training,Home Exercise Program,Joint Mobilizations,Manual Therapy, Neuromuscular Re-education, Self-Care/Home Management,Soft Tissue Mobilization, Therapeutic Activities, Therapeutic Exercises Next Visit Focus/Plan Next Note Type Treatment Note Next Visit Plan Next: Recheck PF strength if off her period. Training for coordination of proper breaths with exercise and review with body mechanics. STM: Sacral Balancing as soon as time permits. Abdominal soft tissue (bladder) mobility , LB/hips. Core strengthening (rotation for upper Abdomen DR, TA). Strengthen PF (ex's and Vemg biofeedback). POC: Pt education, Manual therapy. Biofeedback with vaginal sensor for PF >< awareness and strengthening, Therapeutic Exercises, Therapeutic Activities, Neuromuscular Reeducation. IH
--- NOTE | 2024-08-26 16:14 | PT.OTN ---
Current Diagnoses Stress incontinence (female) (male) (08/26/24) Physical Therapy Treatment Note PT-OP-A Visit Information Start: 05/16/24 19:17 Freq: Status: Active Protocol: Document 08/26/24 13:49 LRN (Rec: 08/26/24 14:36 LRN [id number]) Out-Patient Physical Therapy Visit Information Visit Information Visit Type Treatment Note Visit Start Time 13:49 Visit Stop Time 14:30 Visit Number 8 (1 after PN) Evaluation Information Evaluation Date 06/03/24 Precautions Precautions 2022 PT-OP-B Current Condition Start: 05/16/24 19:17 Freq: Status: Active Protocol: Document 06/03/24 08:17 LRN (Rec: 06/03/24 09:05 LRN [id number]) Current Condition History of Current Condition Onset Date 07/2023 Current Complaints Urinary leakage w/laugh, sneeze, cough, holding too long, squat sometimes History of Current Condition Pt reports onset of stress incontinence after of daughter. Born 07/13/2023 (10 months old ago). From November to April was coughing a lot due to illness of her and daughter. 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 Pt is . Pt is Prior Treatments and Tests PT in [place] in 12/2021 for bilateral hip pain. Developmental History Developmental History Daughter delivered via C- section, 10# 4oz. Pt is 4'11 , wgt 185#. Treatment Goals Patient/Caregiver Goals Pt goals: -Improve PF strength to not leak with exercise rowing and/ or laughing (sneeze, cough, laughing). -HEP. 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 PT-OP-C Subjective Start: 05/16/24 19:17 Freq: Status: Active Protocol: Document 08/26/24 13:49 LRN (Rec: 08/26/24 14:36 LRN [id number]) OP-PT Subjective Patient Comments Patient Comments No change. Only one leak incident due to laughing too much. Urination time is now 7 secs (was 3-4 secs). States her back pain is worse. Can tell that she is slow to contract and relax with quick flicks. PT-OP-I Pelvic Floor Start: 05/16/24 19:17 Freq: Status: Active Protocol: Document 08/26/24 13:49 LRN (Rec: 08/26/24 14:36 LRN [id number]) Pelvic Floor Assessment Urine Other Urinary Symptoms Laughter, and emesis. Leakage Size Small Other Leakage Causes Leaks only if sick or laughter . Leaks Per Day 0 Nocturia Only if baby wakes up. Pads Used In 24 Hours 0 Prolapse Uterine Prolapse Grade 2 Perineal Descent Resting Absent Bearing Present Contraction Ability Voluntary Contraction Moderate Voluntary Relaxation Moderate Manual Muscle Testing Left 3 Manual Muscle Testing Right 3 Manual Muscle Testing Anterior 3 Manual Muscle Testing Posterior 3 Muscle Endurance (Seconds) 10 Number of Quick Contractions In 10 5 Seconds PT-OP-J Posture/Palpation/Skin Start: 05/16/24 19:17 Freq: Status: Active Protocol: Document 06/03/24 08:17 LRN (Rec: 06/03/24 09:05 LRN [id number]) Posture Evaluation Position Standing Head/C-Spine Posture Forward Head Shoulder Posture (R) Elevated Scapula Posture (R) Elevated Pelvis Posture Anteriorly Tilted Knee Posture (L) Genu Valgus,(R) Genu Valgus Comments Posture Comments Dowagers hump, straightened upper T/S spine. Palpation Assessment Location Abdomen Palpation Location Diastasis Rectus Palpation Details Umbilicus 5 above: Closed Umbilicus 4 above: 1 finger width (~2.5 cm) Umbilicus 3 above: 2 finger widths Umbilicus 2 above: 1.5 finger widths Umbilicus 1 above: 1.5 finger widths Umbilicus Umbilicus: 1 below: closed PT-OP-K Range of Motion Start: 05/16/24 19:17 Freq: Status: Active Protocol: Document 06/03/24 08:17 LRN (Rec: 06/03/24 09:05 LRN [id number]) Lumbar Spine Range of Motion Lumbar Spine Active Degrees Testing Position Standing Flexion 110 Extension 15 Rotation Left 45 Rotation Right 40 Lateral Flexion Left 25 Lateral Flexion Right 13 Hip Goniometric Range of Motion Hip Right Passive Testing Position Supine Internal Rotation 35 External Rotation 65 Left Passive Testing Position Supine Internal Rotation 35 External Rotation 85 PT-OP-M Strength Start: 05/16/24 19:17 Freq: Status: Active Protocol: Document 06/03/24 08:17 LRN (Rec: 06/03/24 09:05 LRN [id number]) Trunk Strength Trunk Manual Muscle Testing Core Stabilization Loss of core stability with resistance to R hip ext, and mild loss of stability with other resisted hip motions. Hip Strength Hip Manual Muscle Testing Right Adduction 4+ Good+ Comments Strength is 5/5 except as indicated above. Left External Rotation 3+ Fair+ Comments Strength is 5/5 except as indicated above. PT-OP-Q Treatments Start: 05/16/24 19:17 Freq: Status: Active Protocol: Document 08/26/24 13:49 LRN (Rec: 08/26/24 14:36 LRN [id number]) Therapeutic Exercises Supine Exercises Long Hold Kegels Supine Exercise Name Long Hold Contraction - PF MMT , endurance taken Reps/Minutes 10 SH/20 SR x 10 Comments Extra time taken for resting between contractions and vc's to breathe. Quick Kegels Supine Exercise Name Quick PF contractions - PF confirmed w/MMT, repetitions in 10 sec taken Reps/Minutes 1-2 SH, 2-4 SR x 15' Comments Extra time taken to improve speed of contraction and relaxation w/vc's. Neuro Re-Education Treatment Other Activities Coordination isolating PF from ABDom Details Quick Contractions for speed and Long hold (10 SH) Reps/Duration 21' Comments Vaginal electode, Abdominal electrode PT-OP-T Assessment and Plan Start: 05/16/24 19:17 Freq: Status: Active Protocol: Document 08/26/24 13:49 LRN (Rec: 08/26/24 14:36 LRN [id number]) Physical Therapy Assessment Goals Four Impairment LBP (SIJ) in supine rated 3/10 . Short Term Goal (STG) Pt will be able to sleep on back (prior level of function) instead of on side 50% of the time at night comfortably. STG Duration 09/20/24 [employer] Goal (LTG) Pt will be able to perform supine PF/core ex's with pain no greater than 1/10. 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 Short Term Goal (STG) Pt will be educated in core pressure management with transfers, ADLs and exercise. 07/25/24: Pt educated in core pressure mgmt for transfers, ADLs. 08/15/24: Pt needed review for core pressure mgmt. 08/20/24: Pt shows ability to use good core pressure mgmt with transfers, and understanding with body mechanics; initiated training with exercise. 08/26/24: Pt reporting doing core pressure mgmt at home with transfers. STG Duration 09/20/24 progressed 08/26/24 (need further educ with ex) Group Home Goal (LTG) Pt will be able to lift and exercise (row, squat) without urinary leakage 90% of the time, coordinating breath/ Kegel with exercise. 08/20/24: Urinary leakage 10% of time, very little. LTG Duration 10/18/24 progressed 08/20/24 Two Impairment PF weakness (2/5, except posterior is 3/5) Short Term Goal (STG) Pt will be educated in PF contractions w/o substitute muscles (primarily abdominal). 06/18/24: Training in PF contractions in isolation of substitute muscles, mostly able to perform in isolation. STG Duration 07/05/24 (06/18/24: MET GOAL) Group Home Goal (LTG) Improve PF strength to not leak with sneeze, cough, laughing. 07/25/24: NO leakage with cough, sneeze or laugh. LTG Duration 08/30/24 (07/25/24: MET GOAL ) One Impairment Pt lacks appropriate self care HEP. Short Term Goal (STG) Education in vulvar/genital care. 07/25/24: Pt issued handout for vulvar/genital care. 08/09/24: Pt has no questions or concerns regarding vulvar /genital care. STG Duration 07/05/24 (08/09/24: MET GOAL ) Group Home Goal (LTG) Pt will be independent with a self care HEP of PF strengthening w/breath, positional ex's and hip ROM exercises. 06/03/24: Quick, Long, Aggrevator Kegels 06/25/24: Quick, Long hold Kegel with AD squeeze & TB; in supine on pillows for Kegels. 07/25/24: HEP: Hip stretches , Transfers and ADLs coordinating breath/kegels for core pressure mgmt, vulvar/ genital care. LTG Duration 10/18/24 progressed 07/25/24 Assessment Summary Assessment Pt PF strength is good with quick contractions and endurance hold is weak but good. Quick contractions or relaxations are slow, doing 5 in 10 secs (initially, 7x w/o PF isolation). She is able to hold a 10 sec contraction wth lift, but intensity is weak around the PF clock. Physical Therapy Plan Frequency and Duration Frequency of Treatment 1x/Week Duration of treatment (weeks) 8 Plan of Care Start Date 08/20/24 Plan of Care End Date 10/18/24 Next Visit Focus/Plan Next Note Type Treatment Note Next Visit Plan Next: STM: Sacral Balancing as soon as time permits. Abdominal soft tissue (bladder ) mobility, LB/hips. Review coordination of proper breaths with body mechanics and cont training for coordination of proper breaths with exercise. Core strengthening (rotation for upper Abdomen DR, TA). Strengthen PF (ex's and neuro re-ed). POC: Pt education, Manual therapy. Biofeedback with vaginal sensor for PF >< awareness and strengthening, Therapeutic Exercises, Therapeutic Activities, Neuromuscular Reeducation.
--- NOTE | 2024-09-17 16:12 | PT.OTN ---
Current Diagnoses Stress incontinence (female) (male) (09/17/24) Other specified symptoms and signs involving the digestive system and abdomen (09/17/24) Physical Therapy Treatment Note PT-OP-A Visit Information Start: 05/16/24 19:17 Freq: Status: Active Protocol: Document 09/17/24 13:48 LRN (Rec: 09/17/24 14:33 LRN [id number]) Out-Patient Physical Therapy Visit Information Visit Information Visit Type Treatment Note Visit Start Time 13:48 Visit Stop Time 14:27 Visit Number 9 (2 after PN) Evaluation Information Evaluation Date 06/03/24 Precautions Precautions 2022 PT-OP-B Current Condition Start: 05/16/24 19:17 Freq: Status: Active Protocol: Document 06/03/24 08:17 LRN (Rec: 06/03/24 09:05 LRN [id number]) Current Condition History of Current Condition Onset Date 07/2023 Current Complaints Urinary leakage w/laugh, sneeze, cough, holding too long, squat sometimes History of Current Condition Pt reports onset of stress incontinence after of daughter. Born 07/13/2023 (10 months old ago). From November to April was coughing a lot due to illness of her and daughter. 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 Pt is . Pt is Prior Treatments and Tests PT in [place] in 12/2021 for bilateral hip pain. Developmental History Developmental History Daughter delivered via C- section, 10# 4oz. Pt is 4'11 , wgt 185#. Treatment Goals Patient/Caregiver Goals Pt goals: -Improve PF strength to not leak with exercise rowing and/ or laughing (sneeze, cough, laughing). -HEP. 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 PT-OP-C Subjective Start: 05/16/24 19:17 Freq: Status: Active Protocol: Document 09/17/24 13:48 LRN (Rec: 09/17/24 14:33 LRN [id number]) OP-PT Subjective Patient Comments Patient Comments States she had been sick so her upper and lower back are more painful. PT-OP-I Pelvic Floor Start: 05/16/24 19:17 Freq: Status: Active Protocol: Document 08/26/24 13:49 LRN (Rec: 08/26/24 14:36 LRN [id number]) Pelvic Floor Assessment Urine Other Urinary Symptoms Laughter, and emesis. Leakage Size Small Other Leakage Causes Leaks only if sick or laughter . Leaks Per Day 0 Nocturia Only if baby wakes up. Pads Used In 24 Hours 0 Prolapse Uterine Prolapse Grade 2 Perineal Descent Resting Absent Bearing Present Contraction Ability Voluntary Contraction Moderate Voluntary Relaxation Moderate Manual Muscle Testing Left 3 Manual Muscle Testing Right 3 Manual Muscle Testing Anterior 3 Manual Muscle Testing Posterior 3 Muscle Endurance (Seconds) 10 Number of Quick Contractions In 10 5 Seconds PT-OP-J Posture/Palpation/Skin Start: 05/16/24 19:17 Freq: Status: Active Protocol: Document 06/03/24 08:17 LRN (Rec: 06/03/24 09:05 LRN [id number]) Posture Evaluation Position Standing Head/C-Spine Posture Forward Head Shoulder Posture (R) Elevated Scapula Posture (R) Elevated Pelvis Posture Anteriorly Tilted Knee Posture (L) Genu Valgus,(R) Genu Valgus Comments Posture Comments Dowagers hump, straightened upper T/S spine. Palpation Assessment Location Abdomen Palpation Location Diastasis Rectus Palpation Details Umbilicus 5 above: Closed Umbilicus 4 above: 1 finger width (~2.5 cm) Umbilicus 3 above: 2 finger widths Umbilicus 2 above: 1.5 finger widths Umbilicus 1 above: 1.5 finger widths Umbilicus Umbilicus: 1 below: closed PT-OP-K Range of Motion Start: 05/16/24 19:17 Freq: Status: Active Protocol: Document 06/03/24 08:17 LRN (Rec: 06/03/24 09:05 LRN [id number]) Lumbar Spine Range of Motion Lumbar Spine Active Degrees Testing Position Standing Flexion 110 Extension 15 Rotation Left 45 Rotation Right 40 Lateral Flexion Left 25 Lateral Flexion Right 13 Hip Goniometric Range of Motion Hip Right Passive Testing Position Supine Internal Rotation 35 External Rotation 65 Left Passive Testing Position Supine Internal Rotation 35 External Rotation 85 PT-OP-M Strength Start: 05/16/24 19:17 Freq: Status: Active Protocol: Document 06/03/24 08:17 LRN (Rec: 06/03/24 09:05 LRN [id number]) Trunk Strength Trunk Manual Muscle Testing Core Stabilization Loss of core stability with resistance to R hip ext, and mild loss of stability with other resisted hip motions. Hip Strength Hip Manual Muscle Testing Right Adduction 4+ Good+ Comments Strength is 5/5 except as indicated above. Left External Rotation 3+ Fair+ Comments Strength is 5/5 except as indicated above. PT-OP-Q Treatments Start: 05/16/24 19:17 Freq: Status: Active Protocol: Document 09/17/24 13:48 LRN (Rec: 09/17/24 14:33 LRN [id number]) Therapeutic Exercises Standing Exercises Wall standing for posture Standing Exercise Name Posture trng against wall and independent Equipment Used wall Reps/Minutes 6' Comments Much v & Phy cuing for reducing lordosis & TA tight. Manual Therapy Treatment Consent Patient gave verbal consent for manual Yes treatment Soft Tissue Mobilization Sacral balance Body Location Sacrum/Ileums Mobilization Type Sustained Pressure Intensity/Depth Moderate Body Position Prone Comments Prone: Correcting decreased mobility of: R sacral base inferior mob, L sacral sulcus infer mob ( stopped with tingling of LE), R sacral sulcus PA Sacral sheer to R, R MILIND PA mob, R ischial tub PA PT-OP-T Assessment and Plan Start: 05/16/24 19:17 Freq: Status: Active Protocol: Document 09/17/24 13:48 LRN (Rec: 09/17/24 14:33 LRN [id number]) Physical Therapy Assessment Goals Four Impairment LBP (SIJ) in supine rated 3/10 . Short Term Goal (STG) Pt will be able to sleep on back (prior level of function) instead of on side 50% of the time at night comfortably. STG Duration 09/20/24 Client Advisor Goal (LTG) Pt will be able to perform supine PF/core ex's with pain no greater than 1/10. 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 Short Term Goal (STG) Pt will be educated in core pressure management with transfers, ADLs and exercise. 07/25/24: Pt educated in core pressure mgmt for transfers, ADLs. 08/15/24: Pt needed review for core pressure mgmt. 08/20/24: Pt shows ability to use good core pressure mgmt with transfers, and understanding with body mechanics; initiated training with exercise. 08/26/24: Pt reporting doing core pressure mgmt at home with transfers. STG Duration 09/20/24 progressed 08/26/24 (need further educ with ex) Assisted Goal (LTG) Pt will be able to lift and exercise (row, squat) without urinary leakage 90% of the time, coordinating breath/ Kegel with exercise. 08/20/24: Urinary leakage 10% of time, very little. LTG Duration 10/18/24 progressed 08/20/24 Two Impairment PF weakness (2/5, except posterior is 3/5) Short Term Goal (STG) Pt will be educated in PF contractions w/o substitute muscles (primarily abdominal). 06/18/24: Training in PF contractions in isolation of substitute muscles, mostly able to perform in isolation. STG Duration 07/05/24 (06/18/24: MET GOAL) Client Advisor Goal (LTG) Improve PF strength to not leak with sneeze, cough, laughing. 07/25/24: NO leakage with cough, sneeze or laugh. LTG Duration 08/30/24 (07/25/24: MET GOAL ) One Impairment Pt lacks appropriate self care HEP. Short Term Goal (STG) Education in vulvar/genital care. 07/25/24: Pt issued handout for vulvar/genital care. 08/09/24: Pt has no questions or concerns regarding vulvar /genital care. STG Duration 07/05/24 (08/09/24: MET GOAL ) Client Advisor Goal (LTG) Pt will be independent with a self care HEP of PF strengthening w/breath, positional ex's and hip ROM exercises. 06/03/24: Quick, Long, Aggrevator Kegels 06/25/24: Quick, Long hold Kegel with AD squeeze & TB; in supine on pillows for Kegels. 07/25/24: HEP: Hip stretches , Transfers and ADLs coordinating breath/kegels for core pressure mgmt, vulvar/ genital care. LTG Duration 10/18/24 progressed 07/25/24 Assessment Summary Assessment Pt is a 28 yo female initially seen for JUANITA, leaking with exercise and initially noted to have dec'd R > L hip mobility and kurt hip IR, and dec'd trunk R lateral flex and trunk rot strength and low back/upper back pain hindering her functional ability to lift. Today she reports increased upper and low back pain since being sick last week. Pt had + response to STM with relief of LBP, but UBP remained the same. Posture training helped relieve some of the upper back pain as she was able to more effectely stretch her UB keeping her low back stable in better positioning of reduced lordosis. Physical Therapy Plan Frequency and Duration Frequency of Treatment 1x/Week Duration of treatment (weeks) 8 Plan of Care Start Date 08/20/24 Plan of Care End Date 10/18/24 Next Visit Focus/Plan Next Note Type Treatment Note Next Visit Plan Next: Assess response to sacral balancing (pain and posture) and complete or repeat as needed. Manual therapy: Abdominal soft tissue (bladder) mobility, LB/ hips. Review coordination of proper breaths with body mechanics and cont training for coordination of proper breaths with exercise. Core strengthening (rotation for upper Abdomen DR, TA). Strengthen PF (ex's and neuro re-ed). POC: Pt education, Manual therapy. Biofeedback with vaginal sensor for PF >< awareness and strengthening, Therapeutic Exercises, Therapeutic Activities, Neuromuscular Reeducation.
--- NOTE | 2024-09-24 16:09 | PT.OTN ---
Current Diagnoses Stress incontinence (female) (male) (09/24/24) Other specified symptoms and signs involving the digestive system and abdomen (09/24/24) Physical Therapy Treatment Note PT-OP-A Visit Information Start: 05/16/24 19:17 Freq: Status: Active Protocol: Document 09/24/24 12:19 LRN (Rec: 09/24/24 13:07 LRN [id number]) Out-Patient Physical Therapy Visit Information Visit Information Visit Type Treatment Note Visit Start Time 12:19 Visit Stop Time 13:01 Visit Number 10 (3 after PN) Evaluation Information Evaluation Date 06/03/24 Precautions Precautions 2022 PT-OP-B Current Condition Start: 05/16/24 19:17 Freq: Status: Active Protocol: Document 06/03/24 08:17 LRN (Rec: 06/03/24 09:05 LRN [id number]) Current Condition History of Current Condition Onset Date 07/2023 Current Complaints Urinary leakage w/laugh, sneeze, cough, holding too long, squat sometimes History of Current Condition Pt reports onset of stress incontinence after of daughter. Born 07/13[birth year]2023 (10 months old ago). From November to April was coughing a lot due to illness of her and daughter. 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 Pt is . Pt is Prior Treatments and Tests PT in [place] in 12/2021 for bilateral hip pain. Developmental History Developmental History Daughter delivered via C- section, 10# 4oz. Pt is 4'11 , wgt 185#. Treatment Goals Patient/Caregiver Goals Pt goals: -Improve PF strength to not leak with exercise rowing and/ or laughing (sneeze, cough, laughing). -HEP. 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 PT-OP-C Subjective Start: 05/16/24 19:17 Freq: Status: Active Protocol: Document 09/24/24 12:19 LRN (Rec: 09/24/24 13:07 LRN [id number]) OP-PT Subjective Patient Comments Patient Comments States her back wasn't sore after last session and she has been trying to keep her back in neutral. States she is trying to remember to do core pressure mgmt with ADLs & exercises in gym, with no urinary leakage during rowing and squatting ex's. PT-OP-I Pelvic Floor Start: 05/16/24 19:17 Freq: Status: Active Protocol: Document 08/26/24 13:49 LRN (Rec: 08/26/24 14:36 LRN [id number]) Pelvic Floor Assessment Urine Other Urinary Symptoms Laughter, and emesis. Leakage Size Small Other Leakage Causes Leaks only if sick or laughter . Leaks Per Day 0 Nocturia Only if baby wakes up. Pads Used In 24 Hours 0 Prolapse Uterine Prolapse Grade 2 Perineal Descent Resting Absent Bearing Present Contraction Ability Voluntary Contraction Moderate Voluntary Relaxation Moderate Manual Muscle Testing Left 3 Manual Muscle Testing Right 3 Manual Muscle Testing Anterior 3 Manual Muscle Testing Posterior 3 Muscle Endurance (Seconds) 10 Number of Quick Contractions In 10 5 Seconds PT-OP-J Posture/Palpation/Skin Start: 05/16/24 19:17 Freq: Status: Active Protocol: Document 06/03/24 08:17 LRN (Rec: 06/03/24 09:05 LRN [id number]) Posture Evaluation Position Standing Head/C-Spine Posture Forward Head Shoulder Posture (R) Elevated Scapula Posture (R) Elevated Pelvis Posture Anteriorly Tilted Knee Posture (L) Genu Valgus,(R) Genu Valgus Comments Posture Comments Dowagers hump, straightened upper T/S spine. Palpation Assessment Location Abdomen Palpation Location Diastasis Rectus Palpation Details Umbilicus 5 above: Closed Umbilicus 4 above: 1 finger width (~2.5 cm) Umbilicus 3 above: 2 finger widths Umbilicus 2 above: 1.5 finger widths Umbilicus 1 above: 1.5 finger widths Umbilicus Umbilicus: 1 below: closed PT-OP-K Range of Motion Start: 05/16/24 19:17 Freq: Status: Active Protocol: Document 06/03/24 08:17 LRN (Rec: 06/03/24 09:05 LRN [id number]) Lumbar Spine Range of Motion Lumbar Spine Active Degrees Testing Position Standing Flexion 110 Extension 15 Rotation Left 45 Rotation Right 40 Lateral Flexion Left 25 Lateral Flexion Right 13 Hip Goniometric Range of Motion Hip Right Passive Testing Position Supine Internal Rotation 35 External Rotation 65 Left Passive Testing Position Supine Internal Rotation 35 External Rotation 85 PT-OP-M Strength Start: 05/16/24 19:17 Freq: Status: Active Protocol: Document 06/03/24 08:17 LRN (Rec: 06/03/24 09:05 LRN [id number]) Trunk Strength Trunk Manual Muscle Testing Core Stabilization Loss of core stability with resistance to R hip ext, and mild loss of stability with other resisted hip motions. Hip Strength Hip Manual Muscle Testing Right Adduction 4+ Good+ Comments Strength is 5/5 except as indicated above. Left External Rotation 3+ Fair+ Comments Strength is 5/5 except as indicated above. PT-OP-Q Treatments Start: 05/16/24 19:17 Freq: Status: Active Protocol: Document 09/24/24 12:19 LRN (Rec: 09/24/24 13:07 LRN [id number]) Therapeutic Exercises Prone Exercises Cristobal C. Ext on TBall Reps/Minutes 3-5 SH x 5 TBall Prone Exercise Name UB & LB stretch Reps/Minutes 5-10 SH x 10 Standing Exercises Postural ex Standing Exercise Name Facing wall: Arm lift from wall. Facing away from wall: V-arm flex lift Side left Reps/Minutes 2-3 SH x 5 Wall standing for posture Standing Exercise Name Posture trng against wall and independent, and Chin tucks Equipment Used wall Reps/Minutes 6', & 3', chin tuck x 2' Comments Much v & Phy cuing for reducing lordosis & TA tight. Other Exercises Split squat Iliopsoas stretch Other Exercise Name iliopsoas stretch Side bilateral Reps/Minutes 5' Comments Extra time for proper positioning to deter max cornell stretch Manual Therapy Treatment Soft Tissue Mobilization Abdomen Body Location Lower abdomiinal lift (around bladder, uterus level) Mobilization Type Sustained Pressure Intensity/Depth Moderate Body Position Supine PT-OP-T Assessment and Plan Start: 05/16/24 19:17 Freq: Status: Active Protocol: Document 09/24/24 12:19 LRN (Rec: 09/24/24 13:07 LRN [id number]) Physical Therapy Assessment Goals Four Impairment LBP (SIJ) in supine rated 3/10 . Short Term Goal (STG) Pt will be able to sleep on back (prior level of function) instead of on side 50% of the time at night comfortably. STG Duration 09/20/24 Lumber Mover Goal (LTG) Pt will be able to perform supine PF/core ex's with pain no greater than 1/10. 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 Short Term Goal (STG) Pt will be educated in core pressure management with transfers, ADLs and exercise. 07/25/24: Pt educated in core pressure mgmt for transfers, ADLs. 08/15/24: Pt needed review for core pressure mgmt. 08/20/24: Pt shows ability to use good core pressure mgmt with transfers, and understanding with body mechanics; initiated training with exercise. 08/26/24: Pt reporting doing core pressure mgmt at home with transfers. 09/24/24: Pt reporting doing core pressure mgmt with ADLs & exercises in gym with no urinary leakage. STG Duration 09/20/24 (09/24/24: MET GOAL) Group Home Goal (LTG) Pt will be able to lift and exercise (row, squat) without urinary leakage 90% of the time, coordinating breath/ Kegel with exercise. 08/20/24: Urinary leakage 10% of time, very little. 09/24/24: No urinary leakage with rowing or squating. Having Cervical spotting ( light pink bleeding) with running. LTG Duration 10/18/24 (09/24/24: MET GOAL ) One Impairment Pt lacks appropriate self care HEP. Short Term Goal (STG) Education in vulvar/genital care. 07/25/24: Pt issued handout for vulvar/genital care. 08/09/24: Pt has no questions or concerns regarding vulvar /genital care. STG Duration 07/05/24 (08/09/24: MET GOAL ) Group Home Goal (LTG) Pt will be independent with a self care HEP of PF strengthening w/breath, positional ex's and hip ROM exercises. 06/03/24: Quick, Long, Aggrevator Kegels 06/25/24: Quick, Long hold Kegel with AD squeeze & TB; in supine on pillows for Kegels. 07/25/24: HEP: Hip stretches , Transfers and ADLs coordinating breath/kegels for core pressure mgmt, vulvar/ genital care. LTG Duration 10/18/24 progressed 07/25/24 Assessment Summary Assessment Pt appears to have had a + response to sacral balancing; therefore having less back pain since last session. Posture remains with excessive lumbar lordosis, tight hip flexors, flat upper back and obvious dowagers hump. Bladder was slightly rot right in supine, but corrected with manual STM. Physical Therapy Plan Frequency and Duration Frequency of Treatment 1x/Week Duration of treatment (weeks) 8 Plan of Care Start Date 08/20/24 Plan of Care End Date 10/18/24 Next Visit Focus/Plan Next Note Type Discharge Summary Next Visit Plan Next DC to added HEP: Posture ex's (LB, flattened UB, dowagers hump) and hip ROM ex' s. Core strengthening ( rotation for upper Abdomen DR, TA). Review coordination of proper breaths with body mechanics and cont training for coordination of proper breaths with exercise. Recheck PF strength (ex's and neuro re-ed), if time permits Manual therapy: LB/hips ( Iliopsoas).
--- NOTE | 2024-10-01 16:29 | PT.OTN ---
Current Diagnoses Stress incontinence (female) (male) (10/01/24) Other specified symptoms and signs involving the digestive system and abdomen (10/01/24) Physical Therapy Treatment Note PT-OP-A Visit Information Start: 05/16/24 19:17 Freq: Status: Active Protocol: Document 10/01/24 13:52 LRN (Rec: 10/01/24 14:41 LRN [id number]) Out-Patient Physical Therapy Visit Information Visit Information Visit Type Treatment Note Visit Start Time 13:52 Visit Stop Time 14:36 Visit Number 11 (4 after PN) Evaluation Information Evaluation Date 06/03/24 Precautions Precautions 2022 PT-OP-B Current Condition Start: 05/16/24 19:17 Freq: Status: Active Protocol: Document 06/03/24 08:17 LRN (Rec: 06/03/24 09:05 LRN [id number]) Current Condition History of Current Condition Onset Date 07/2023 Current Complaints Urinary leakage w/laugh, sneeze, cough, holding too long, squat sometimes History of Current Condition Pt reports onset of stress incontinence after of daughter. Born 07/13/2023 (10 months old ago). From November to April was coughing a lot due to illness of her and daughter. 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 Pt is . Pt is Prior Treatments and Tests PT in [place] in 12/2021 for bilateral hip pain. Developmental History Developmental History Daughter delivered via C- section, 10# 4oz. Pt is 4'11 , wgt 185#. Treatment Goals Patient/Caregiver Goals Pt goals: -Improve PF strength to not leak with exercise rowing and/ or laughing (sneeze, cough, laughing). -HEP. 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 PT-OP-C Subjective Start: 05/16/24 19:17 Freq: Status: Active Protocol: Document 10/01/24 13:52 LRN (Rec: 10/01/24 14:41 LRN [id number]) OP-PT Subjective Patient Comments Patient Comments States her spouse has been helping her to do ex's for posture. PT-OP-I Pelvic Floor Start: 05/16/24 19:17 Freq: Status: Active Protocol: Document 10/01/24 13:52 LRN (Rec: 10/01/24 14:41 LRN [id number]) Pelvic Floor Assessment SEMG (uV) Baseline 1.2 Quick Contraction 17.5 10 Second Contraction 17.3 Recruitment Pattern Good Relaxation Fair Holding Good Stability of Hold Good SEMG Stability of Rest Poor/Slow PT-OP-J Posture/Palpation/Skin Start: 05/16/24 19:17 Freq: Status: Active Protocol: Document 06/03/24 08:17 LRN (Rec: 06/03/24 09:05 LRN [id number]) Posture Evaluation Position Standing Head/C-Spine Posture Forward Head Shoulder Posture (R) Elevated Scapula Posture (R) Elevated Pelvis Posture Anteriorly Tilted Knee Posture (L) Genu Valgus,(R) Genu Valgus Comments Posture Comments Dowagers hump, straightened upper T/S spine. Palpation Assessment Location Abdomen Palpation Location Diastasis Rectus Palpation Details Umbilicus 5 above: Closed Umbilicus 4 above: 1 finger width (~2.5 cm) Umbilicus 3 above: 2 finger widths Umbilicus 2 above: 1.5 finger widths Umbilicus 1 above: 1.5 finger widths Umbilicus Umbilicus: 1 below: closed PT-OP-K Range of Motion Start: 05/16/24 19:17 Freq: Status: Active Protocol: Document 06/03/24 08:17 LRN (Rec: 06/03/24 09:05 LRN [id number]) Lumbar Spine Range of Motion Lumbar Spine Active Degrees Testing Position Standing Flexion 110 Extension 15 Rotation Left 45 Rotation Right 40 Lateral Flexion Left 25 Lateral Flexion Right 13 Hip Goniometric Range of Motion Hip Right Passive Testing Position Supine Internal Rotation 35 External Rotation 65 Left Passive Testing Position Supine Internal Rotation 35 External Rotation 85 PT-OP-M Strength Start: 05/16/24 19:17 Freq: Status: Active Protocol: Document 06/03/24 08:17 LRN (Rec: 06/03/24 09:05 LRN [id number]) Trunk Strength Trunk Manual Muscle Testing Core Stabilization Loss of core stability with resistance to R hip ext, and mild loss of stability with other resisted hip motions. Hip Strength Hip Manual Muscle Testing Right Adduction 4+ Good+ Comments Strength is 5/5 except as indicated above. Left External Rotation 3+ Fair+ Comments Strength is 5/5 except as indicated above. PT-OP-Q Treatments Start: 05/16/24 19:17 Freq: Status: Active Protocol: Document 10/01/24 13:52 LRN (Rec: 10/01/24 14:41 N [id number]) Therapeutic Exercises Supine Exercises Resting/relaxation of PF Supine Exercise Name Mindfulness for PF relaxation. Reps/Minutes 8' Comments Adjusting for PF assessment. Long Hold Kegels Reps/Minutes 14' Quick Kegels Reps/Minutes 8' Sidelying Exercises R hip ER Sidelying Exercise Name Clamshell Side right Reps/Minutes 10x 3 L hip AD Side left Reps/Minutes 10x 3 Self-Care/Home Management Treatment Education Other Education 6' Discussed and educated pt in progression for return to running using T-Ball for vertical drop motion on PF and discussed progressive bouncing force f/b intermittent run/walk for very short distance. Distrance to increase over time. Activities Self-Care/Home Management Activities Issued and reviewed HEP: L hip AD sidelie and standing & R hip ER (clamshell) strengthening. PT-OP-T Assessment and Plan Start: 05/16/24 19:17 Freq: Status: Active Protocol: Document 10/01/24 13:52 LRN (Rec: 10/01/24 14:41 N [id number]) Physical Therapy Assessment Goals Four Impairment LBP (SIJ) in supine rated 3/10 . Short Term Goal (STG) Pt will be able to sleep on back (prior level of function) instead of on side 50% of the time at night comfortably. STG Duration 09/20/24 (10/01/24: MET GOAL ) [employer] Goal (LTG) Pt will be able to perform supine PF/core ex's with pain no greater than 1/10. 10/01/24: Able to ex without pain. 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 Short Term Goal (STG) Pt will be educated in core pressure management with transfers, ADLs and exercise. 07/25/24: Pt educated in core pressure mgmt for transfers, ADLs. 08/15/24: Pt needed review for core pressure mgmt. 08/20/24: Pt shows ability to use good core pressure mgmt with transfers, and understanding with body mechanics; initiated training with exercise. 08/26/24: Pt reporting doing core pressure mgmt at home with transfers. 09/24/24: Pt reporting doing core pressure mgmt with ADLs & exercises in gym with no urinary leakage. STG Duration 09/20/24 (09/24/24: MET GOAL) Mcfp Goal (LTG) Pt will be able to lift and exercise (row, squat) without urinary leakage 90% of the time, coordinating breath/ Kegel with exercise. 08/20/24: Urinary leakage 10% of time, very little. 09/24/24: No urinary leakage with rowing or squating. Having Cervical spotting ( light pink bleeding) with running. LTG Duration 10/18/24 (09/24/24: MET GOAL ) Two Impairment PF weakness (2/5, except posterior is 3/5) Short Term Goal (STG) Pt will be educated in PF contractions w/o substitute muscles (primarily abdominal). 06/18/24: Training in PF contractions in isolation of substitute muscles, mostly able to perform in isolation. STG Duration 07/05/24 (06/18/24: MET GOAL) Mcfp Goal (LTG) Improve PF strength to not leak with sneeze, cough, laughing. 07/25/24: NO leakage with cough, sneeze or laugh. LTG Duration 08/30/24 (07/25/24: MET GOAL ) One Impairment Pt lacks appropriate self care HEP. Short Term Goal (STG) Education in vulvar/genital care. 07/25/24: Pt issued handout for vulvar/genital care. 08/09/24: Pt has no questions or concerns regarding vulvar /genital care. STG Duration 07/05/24 (08/09/24: MET GOAL ) Mcfp Goal (LTG) Pt will be independent with a self care HEP of PF strengthening w/breath, positional ex's and hip ROM exercises. 06/03/24: Quick, Long, Aggrevator Kegels 06/25/24: Quick, Long hold Kegel with AD squeeze & TB; in supine on pillows for Kegels. 07/25/24: HEP: Hip stretches , Transfers and ADLs coordinating breath/kegels for core pressure mgmt, vulvar/ genital care. 10/01/24: HEP: L hip AD sidelie and standing & R hip ER (clamshell) strengthening. LTG Duration 10/18/24 (10/01/24: MET GOAL) Assessment Summary Assessment Pt is a 28 yo female initially seen for stress urinary incontinence. She was leaking with exercise and initially was noted to have dec'd R > L hip mobility and kurt hip IR; dec'd trunk R lateral flex and rot strength; and low back/ upper back pain hindering her functional ability to lift. She is no longer having urinary incontinence and is no longer experiencing back pain with sleeping or exercise. She has been given a home exercise program for her areas of weakness and mobility restrictions and is demonstrating good knowledge of core pressure management. 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 If urinary leakage returns as a result of running for her physical assessment test, further pelvic health physical therapy would be appropriate. Physical Therapy Plan Discharge Physical Therapy Discharge Reasons Goals Met Discharge Comments Thank you for your referral. A new referral would be needed for pelvic health physical therapy if the pt needs help being able to remain continent when returning to running for her physical testing requirement.
== END 2024-10-03 14:56 | disposition home or self-care (01) ==
LOC: PHYS 13:45
PROVIDERS: PCP Physician Assistant; Referring Provider Physician Assistant; Visit Provider Physician Assistant
DX: N39.3 Stress incontinence (female) (male) (principal); R19.8 Other specified symptoms and signs involving the digestive system and abdomen
CPT/HCPCS: 97110; 97112; 97140; 97162; 97530; 97535